=== PATIENT | female | born 1945 | race Caucasian/White ===

== ENCOUNTER 2017-09-23 01:41 | Emergency (ER) | payer MEDICARE, BC ==
[2017-09-23] MEDS ORDERED: Ondansetron 4 MG/2 ML SDV IV ONE (02:24)
--- NOTE | 2017-09-23 02:42 | EDM.PDOC ---
ED HPI GENERAL MEDICAL PROBLEM - General Chief Complaint: Abdominal Pain Stated Complaint: STOMACH PAINS [id number] Time Seen by Provider: 09/23/17 02:40 Source of Information: Reports: Patient History Limitations: Reports: No Limitations - History of Present Illness INITIAL COMMENTS - FREE TEXT/NARRATIVE: c/o suprapubic area pain since 7pm nausea, no vomiting/diarrhoea Lower Abdominal Pain Score (Numeric/FACES): 10 - Related Data Allergies Allergy/AdvReac Type Severity Reaction Status Date / Time erythromycin base Allergy Hives Verified 09/23/17 02:01 [From E.E.S.] Penicillins Allergy Hives Verified 09/23/17 02:01 Home Meds: Home Meds Estropipate [Estropipate] 0.75 mg PO DAILY 09/23/17 [History] FLUoxetine HCl [Fluoxetine HCl] 80 mg PO DAILY 09/23/17 [History] Omeprazole [Omeprazole] 20 mg PO DAILY 09/23/17 [History] amLODIPine Besylate [Amlodipine Besylate] 10 mg PO DAILY 09/23/17 [History] hydrOXYzine Pamoate [Hydroxyzine Pamoate] 25 mg PO DAILY 09/23/17 [History] metFORMIN [Glucophage XR] 500 mg PO DAILY 09/23/17 [History] Past Medical History Cardiovascular History: Reports: Hypertension Gastrointestinal History: Reports: GERD Genitourinary History: Reports: Urinary Incontinence [employer] History: Reports: Musculoskeletal History: Reports: Back Pain, Chronic Psychiatric History: Reports: Depression - Past Surgical History GI Surgical History: Reports: Appendectomy Musculoskeletal Surgical History: Reports: Knee Replacement Social & Family History - Family History Family Medical History: Noncontributory - Tobacco Use Smoking Status *Q: Never Smoker Second Hand Smoke Exposure: No - Caffeine Use Caffeine Use: Reports: Coffee, Tea - Recreational Drug Use Recreational Drug Use: No ED ROS GENERAL - Review of Systems Review Of Systems: ROS reveals no pertinent complaints other than HPI. ED EXAM, GI/ABD - Physical Exam Exam: See Below Exam Limited By: No Limitations General Appearance: Alert, WD/WN, Mild Distress Ears: Hearing Grossly Normal Throat/Mouth: Normal Voice, No Airway Compromise Head: Atraumatic Neck: Non-Tender, Full Range of Motion Respiratory/Chest: No Respiratory Distress, No Accessory Muscle Use Cardiovascular: Regular Rate, Rhythm GI/Abdominal Exam: Tender, Other (suprapubic area). No: Distended, Guarding, Rigid, Rebound Neurological: Alert, Oriented, Normal Cognition, Normal Gait, No Motor/Sensory Deficits Psychiatric: Flat Affect Skin Exam: Warm, Dry, Normal Color Lymphatic: No Adenopathy Course - Vital Signs Last Recorded V/S: Last Vital Signs Temp 37.1 C 09/23/17 04:04 Pulse 87 09/23/17 04:04 Resp 16 09/23/17 04:04 BP 158/90 H 09/23/17 04:04 Pulse Ox 97 09/23/17 04:04 - Orders/Labs/Meds Orders: Active Orders 24 hr Category Date Time Status CULTURE BLOOD [BC] Stat Lab 09/23/17 03:02 Received Labs: Laboratory Tests 09/23/17 09/23/17 09/23/17 Range/Units 02:18 02:18 02:37 WBC 18.1 H (5.0-10.0) 10^3/uL RBC 4.61 (4.2-5.4) 10^6/uL Hgb 13.8 (12.0-16.0) g/dL Hct 41.7 (37.0-47.0) % MCV 90.5 (80-100) fL MCH 29.9 (27.0-34.0) pg MCHC 33.1 (33.0-35.0) g/dL Plt Count 278 (150-450) 10^3/uL Neut % (Auto) 90.9 H (42.2-75.2) % Lymph % (Auto) 3.2 L (20.5-50.1) % [place] % (Auto) 5.5 (2-8) % Eos % (Auto) 0.2 L (1.0-3.0) % Baso % (Auto) 0.2 (0.0-1.0) % Sodium 137 (135-145) mmol/L Potassium 4.0 (3.6-5.0) mmol/L Chloride 102 (101-111) mmol/L Carbon Dioxide 21.0 (21.0-31.0) mmol/L Anion Gap 18.0 BUN 28 H (7-18) mg/dL Creatinine 0.9 (0.6-1.3) mg/dL Est Cr Clr Drug Dosing 52.34 mL/min Estimated GFR (MDRD) > 60 BUN/Creatinine Ratio 31.11 Glucose 243 H (74-105) mg/dL Lactic Acid (0.5-2.2) mmol/L Calcium 9.2 (8.4-10.2) mg/dl Total Bilirubin 0.4 (0.2-1.0) mg/dL AST 33 (10-42) IU/L ALT 27 (10-60) IU/L Alkaline Phosphatase 68 (42-121) IU/L Total Protein 7.2 (6.7-8.2) g/dl Albumin 3.8 (3.2-5.5) g/dl Globulin 3.4 Albumin/Globulin Ratio 1.12 Urine Color Yellow (YELLOW) Urine Appearance Clear (CLEAR) Urine pH 5.0 (5.0-9.0) Ur Specific [place] >= 1.030 (1.005-1.030) Urine Protein Negative (NEGATIVE) Urine Glucose (UA) 250 H (NEGATIVE) Urine Ketones Trace H (NEGATIVE) Urine Occult Blood Trace-intact H (NEGATIVE) Urine Nitrite Negative (NEGATIVE) Urine Bilirubin Negative (NEGATIVE) Urine Urobilinogen 0.2 (0.2-1.0) mg/dL Ur Leukocyte Esterase Negative (NEGATIVE) Urine RBC 0-5 /HPF Urine WBC 0-5 (0-5/HPF) /HPF Ur Epithelial Cells Few /HPF Urine Bacteria Few (0-FEW/HPF) /HPF Urine Mucus Few H /LPF / Range/Units 03:02 WBC (5.0-10.0) 10^3/uL RBC (4.2-5.4) 10^6/uL Hgb (12.0-16.0) g/dL Hct (37.0-47.0) % MCV (80-100) fL MCH (27.0-34.0) pg MCHC (33.0-35.0) g/dL Plt Count (150-450) 10^3/uL Neut % (Auto) (42.2-75.2) % Lymph % (Auto) (20.5-50.1) % [place] % (Auto) (2-8) % Eos % (Auto) (1.0-3.0) % Baso % (Auto) (0.0-1.0) % Sodium (135-145) mmol/L Potassium (3.6-5.0) mmol/L Chloride (101-111) mmol/L Carbon Dioxide (21.0-31.0) mmol/L Anion Gap BUN (7-18) mg/dL Creatinine (0.6-1.3) mg/dL Est Cr Clr Drug Dosing mL/min Estimated GFR (MDRD) BUN/Creatinine Ratio Glucose (74-105) mg/dL Lactic Acid 3.4 H (0.5-2.2) mmol/L Calcium (8.4-10.2) mg/dl Total Bilirubin (0.2-1.0) mg/dL AST (10-42) IU/L ALT (10-60) IU/L Alkaline Phosphatase (42-121) IU/L Total Protein (6.7-8.2) g/dl Albumin (3.2-5.5) g/dl Globulin Albumin/Globulin Ratio Urine Color (YELLOW) Urine Appearance (CLEAR) Urine pH (5.0-9.0) Ur Specific [place] (1.005-1.030) Urine Protein (NEGATIVE) Urine Glucose (UA) (NEGATIVE) Urine Ketones (NEGATIVE) Urine Occult Blood (NEGATIVE) Urine Nitrite (NEGATIVE) Urine Bilirubin (NEGATIVE) Urine Urobilinogen (0.2-1.0) mg/dL Ur Leukocyte Esterase (NEGATIVE) Urine RBC /HPF Urine WBC (0-5/HPF) /HPF Ur Epithelial Cells /HPF Urine Bacteria (0-FEW/HPF) /HPF Urine Mucus /LPF Meds: Medications Discontinued Medications Generic Name Dose Route Start Last Admin Trade Name Freq PRN Reason Stop Dose Admin Loperamide HCl 2 mg 09/23/17 04:15 Imodium PO 09/23/17 04:16 ONETIME ONE Morphine Sulfate 2 mg 09/23/17 02:55 09/23/17 02:59 Morphine IVPUSH 09/23/17 02:56 2 mg ONETIME ONE Administration Ondansetron HCl 4 mg 09/23/17 02:24 09/23/17 02:44 Zofran IV 09/23/17 02:25 4 mg ONETIME ONE Administration - Re-Assessments/Exams Free Text/Narrative Re-Assessment/Exam: 09/23/17 04:17 results discussed with pt who is feeling much better after having 2 large BM Departure - Departure Time of Disposition: 04:17 Disposition: Home, Self-Care 01 Condition: Good Clinical Impression: Gastroenteritis Abdominal pain Qualifiers: Abdominal location: lower abdomen, unspecified Qualified Code(s): R10.30 - Lower abdominal pain, unspecified Diarrhea Qualifiers: Diarrhea type: unspecified type Qualified Code(s): R19.7 - Diarrhea, unspecified - Discharge Information Instructions: Viral Gastroenteritis, Adult, Tmnr-of-Bcfw Forms: ED Department Discharge Additional Instructions: 1) avoid solid foods next 48 hours 2) have broth, jello 3) recheck as needed rx given; bentyl 10mg bid prn x 6 imodium qid prn - My Orders Last 24 Hours: My Active Orders 09/23/17 03:02 CULTURE BLOOD [BC] Stat - Assessment/Plan Last 24 Hours: My Active Orders 09/23/17 03:02 CULTURE BLOOD [BC] Stat
[2017-09-23] MEDS ORDERED: Morphine 2 MG/ML Syringe IVPUSH ONE (02:55)
[2017-09-23 02:57] LABS: CHLORIDE,CL 102 mmol/L (101-111); SODIUM,NA 137 mmol/L (135-145)
[2017-09-23] MEDS ORDERED: Loperamide 2 MG Cap PO ONE (04:15)
== END 2017-09-23 04:28 | disposition home or self-care (01) ==
LOC: DL.ED 01:41
DX: K52.9 Noninfective gastroenteritis and colitis, unspecified (principal); I10 Essential (primary) hypertension; Z88.1 Allergy status to other antibiotic agents; Z88.0 Allergy status to penicillin; Z79.899 Other long term (current) drug therapy; Z79.84 Long term (current) use of oral hypoglycemic drugs
CPT/HCPCS: 36415; 71045; 74176; 80053; 81001; 83605; 85025; 87040; 96374; 96375; 99284; A9270; J2270; J2405

== ENCOUNTER → 2018-12-16 | Outpatient (CLI) | payer MEDICARE, BC ==
[2018-12-16 11:13] LABS: ANION GAP 16.3; CHLORIDE,CL 100 mmol/L (101-111); SODIUM,NA 136 mmol/L (135-145)
== END ==
LOC: DL.CLIN 08:58
PROVIDERS: ATTEND Nurse Practitioner
DX: E11.9 Type 2 diabetes mellitus without complications (principal); E78.00 Pure hypercholesterolemia, unspecified; I10 Essential (primary) hypertension; R53.83 Other fatigue
CPT/HCPCS: 36415; 80053; 80061; 81003-QW; 82043; 82570; 83036; 84443; 85025

== ENCOUNTER → 2019-01-18 | Outpatient (CLI) | payer MEDICARE, BC | LOC: DL.CLIN 11:00 | DX: B37.2 Candidiasis of skin and nail (principal) | CPT/HCPCS: 99212 ==

== ENCOUNTER 2019-04-28 05:39 | Inpatient (IN) | payer MEDICARE, BC ==
[2019-04-28] MEDS ORDERED: Diltiazem 25 MG/5 ML SDV IVPUSH ONE (05:48)
[2019-04-28] MEDS ORDERED: Diltiazem 25 MG/5 ML SDV ONE (05:48)
[2019-04-28] MEDS: Sodium Chloride 0.9% 10 ML Syringe FLUSH PRN (05:55)
[2019-04-28 06:16] LABS: ANION GAP 22.7; CHLORIDE,CL 101 mmol/L (101-111); SODIUM,NA 136 mmol/L (135-145)
[2019-04-28] MEDS ORDERED: Furosemide 40 MG/4 ML VIAL IVPUSH ONE (06:34)
--- NOTE | 2019-04-28 07:18 | EDM.PDOC ---
ED HPI GENERAL MEDICAL PROBLEM - General Chief Complaint: Cardiovascular Problem Stated Complaint: TROUBLE BREATHING Time Seen by Provider: 04/28/19 05:50 Source of Information: Reports: Patient, Family, RN, RN Notes Reviewed History Limitations: Reports: Respiratory Distress - History of Present Illness INITIAL COMMENTS - FREE TEXT/NARRATIVE: Pt to ER with c/o SOB and cough. Patient states she woke up during the night and was unable to breathe. Patient states she has been not feeling well since March 19. She states she has had a cough and SOB since then. States she has atrial fibrillation. Patient denies fever, chills, N/V/D. Denies chest pains. Patient pale, diaphoretic, SOB upon arrival to the ER. O2 Sats mid to high 80's upon arrival to the ER. Onset: Today, Sudden Back Pain Score (Numeric/FACES): 5 - Related Data Allergies Allergy/AdvReac Type Severity Reaction Status Date / Time erythromycin base Allergy Hives Verified 04/28/19 06:10 [From E.E.S.] Penicillins Allergy Hives Verified 04/28/19 06:10 Home Meds: Home Meds Estropipate 0.75 mg PO DAILY 09/23/17 [History] FLUoxetine HCl [Fluoxetine HCl] 80 mg PO DAILY 09/23/17 [History] Omeprazole 20 mg PO DAILY 09/23/17 [History] amLODIPine Besylate [Amlodipine Besylate] 10 mg PO DAILY 09/23/17 [History] hydrOXYzine pamoate [Hydroxyzine Pamoate] 25 mg PO DAILY 09/23/17 [History] metFORMIN [Glucophage XR] 500 mg PO DAILY 09/23/17 [History] Cholecalciferol (Vitamin D3) [Vitamin D] 5,000 unit PO DAILY 04/28/19 [History] Garlic 1,000 mg PO DAILY 04/28/19 [History] Past Medical History HEENT History: Reports: Impaired Vision, Other (See Below) Other HEENT History: wears glasses Cardiovascular History: Reports: Hypertension Respiratory History: Reports: None Gastrointestinal History: Reports: GERD Genitourinary History: Reports: Urinary Incontinence 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: Musculoskeletal History: Reports: Back Pain, Chronic Neurological History: Reports: None Psychiatric History: Reports: Depression Endocrine/Metabolic History: Reports: None Hematologic History: Reports: None Immunologic History: Reports: None Oncologic (Cancer) History: Reports: None - Past Surgical History GI Surgical History: Reports: Appendectomy Musculoskeletal Surgical History: Reports: Knee Replacement Social & Family History - Family History Family Medical History: Noncontributory - Tobacco Use Smoking Status *Q: Never Smoker - Caffeine Use Caffeine Use: Reports: Coffee, Tea - Recreational Drug Use Recreational Drug Use: No ED ROS GENERAL - Review of Systems Review Of Systems: ROS reveals no pertinent complaints other than HPI. ED EXAM, GENERAL - Physical Exam Exam: See Below Exam Limited By: Respiratory Distress General Appearance: Alert, WD/WN, Moderate Distress Eye Exam: Bilateral Eye: EOMI, Normal Inspection Ears: Normal External Exam, Hearing Grossly Normal Nose: Normal Inspection Throat/Mouth: Normal Inspection, Normal Voice, No Airway Compromise Head: Atraumatic, Normocephalic Neck: Normal Inspection Respiratory/Chest: Respiratory Distress, Decreased Breath Sounds, Crackles Cardiovascular: No Edema, Tachycardia, Irregularly Irregular Peripheral Pulses: 1+: Radial (L), Radial (R) GI/Abdominal: Normal Bowel Sounds, Soft, Non-Tender (Female) Exam: Deferred Rectal (Female) Exam: Deferred Back Exam: Normal Inspection, Full Range of Motion, NT Extremities: Normal Inspection, Normal Capillary Refill Neurological: Alert, Oriented, CN II-XII Intact, Normal Cognition, Normal Gait, Normal Reflexes, No Motor/Sensory Deficits Psychiatric: Normal Affect, Normal Mood Skin Exam: Cool, Diaphoretic Lymphatic: No Adenopathy Course - Vital Signs Last Recorded V/S: Last Vital Signs Temp 98.4 F 04/28/19 06:15 Pulse 92 04/28/19 06:15 Resp 20 04/28/19 06:15 BP 113/67 04/28/19 06:15 Pulse Ox 92 L 04/28/19 06:15 - Orders/Labs/Meds Orders: Active Orders 24 hr Category Date Time Status EKG Documentation Completion [RC] STAT Care 04/28/19 05:47 Active Peripheral IV Care [RC] . DIRECTED Care 04/28/19 05:48 Active Sodium Chloride 0.9% [Saline Flush] Med 04/28/19 05:48 Active 10 ml FLUSH ASDIRECTED PRN Peripheral IV Insertion Adult [OM.PC] Stat Oth 04/28/19 05:47 Ordered Medication Orders Sodium Chloride (Saline Flush) 10 ml FLUSH ASDIRECTED PRN PRN Reason: Keep Vein Open Last Admin: 04/28/19 05:55 Dose: 10 ml Labs: Laboratory Tests 04/28/19 04/28/19 04/28/19 Range/Units 05:45 05:45 05:45 WBC 15.8 H (5.0-10.0) 10^3/uL RBC 4.64 (4.2-5.4) 10^6/uL Hgb 13.5 (12.0-16.0) g/dL Hct 43.0 (37.0-47.0) % MCV 92.7 (80-100) fL MCH 29.1 (27.0-34.0) pg MCHC 31.4 L (33.0-35.0) g/dL Plt Count 370 (150-450) 10^3/uL Neut % (Auto) 64.6 (42.2-75.2) % Lymph % (Auto) 21.5 (20.5-50.1) % [place] % (Auto) 11.6 H (2-8) % Eos % (Auto) 2.0 (1.0-3.0) % Baso % (Auto) 0.3 (0.0-1.0) % Add Manual Diff Yes Neutrophils % (Manual) 54 (42-75) % Lymphocytes % (Manual) 30 (20-50) % Monocytes % (Manual) 11 H (2-8) % Eosinophils % (Manual) 2 (1-3) % Basophils % (Manual) 3 Atypical Lymphocytes Moderate Platelet Estimate Adequate PT 9.5 (9.0-12.0) SEC INR 0.9 (0.9-1.2) Sodium 136 (135-145) mmol/L Potassium 3.7 (3.6-5.0) mmol/L Chloride 101 (101-111) mmol/L Carbon Dioxide 16.0 L (21.0-31.0) mmol/L Anion Gap 22.7 BUN 11 (7-18) mg/dL Creatinine 0.9 (0.6-1.3) mg/dL Est Cr Clr Drug Dosing TNP Estimated GFR (MDRD) > 60 BUN/Creatinine Ratio 12.22 Glucose 285 H (74-105) mg/dL Calcium 8.9 (8.4-10.2) mg/dl Total Bilirubin 0.6 (0.2-1.0) mg/dL AST 40 (10-42) IU/L ALT 27 (10-60) IU/L Alkaline Phosphatase 68 (42-121) IU/L Troponin I < 0.02 (0.00-0.02) ng/ml B-Natriuretic Peptide 586 H (0-100) pg/ml Total Protein 7.3 (6.7-8.2) g/dl Albumin 3.4 (3.2-5.5) g/dl Globulin 3.9 Albumin/Globulin Ratio 0.87 Meds: Medications Generic Name Dose Route Start Last Admin Trade Name Freq PRN Reason Stop Dose Admin Sodium Chloride 10 ml 04/28/19 05:48 04/28/19 05:55 Saline Flush FLUSH 10 ml ASDIRECTED PRN Administration Keep Vein Open Discontinued Medications Generic Name Dose Route Start Last Admin Trade Name Freq PRN Reason Stop Dose Admin Diltiazem HCl 25 mg 04/28/19 05:48 04/28/19 05:54 Diltiazem IVPUSH 04/28/19 05:49 20 mg ONETIME ONE Administration Diltiazem HCl Confirm 04/28/19 05:48 04/28/19 05:55 Diltiazem Administered 04/28/19 05:49 Not Given Dose 25 mg .ROUTE .STK-MED ONE Furosemide 80 mg 04/28/19 06:34 04/28/19 07:07 Lasix IVPUSH 04/28/19 06:35 80 mg NOW ONE Administration - Radiology Interpretation Free Text/Narrative:: Chest xray: FINDINGS: Lungs: There is moderate perihilar interstitial prominence consistent with volume overload or congestive heart failure. There is subjacent atelectasis at the lung bases. Pleural space: There are bilateral small pleural effusions blunting the costophrenic angles. Heart/Mediastinum: Borderline cardiomegaly. Bones/joints: Unremarkable. IMPRESSION: There is moderate perihilar interstitial prominence consistent with volume overload or congestive heart failure. Thank you for allowing us to participate in the care of your patient. Dictated and Authenticated by: Khai Meyers MD 04/28/2019 7:02 AM Central Time ([place] & [place]) See rad report - Re-Assessments/Exams Free Text/Narrative Re-Assessment/Exam: 04/28/19 07:28 Discussed patient case with Dr. Garcia who agreed to accept the patient for inpatient admission. Departure - Departure Time of Disposition: 07:26 Disposition: Admitted As Inpatient 68 Condition: Fair Clinical Impression: CHF (congestive heart failure) Qualifiers: Heart failure type: unspecified Heart failure chronicity: acute Qualified Code( s): I50.9 - Heart failure, unspecified Atrial fibrillation Qualifiers: Atrial fibrillation type: unspecified Qualified Code(s): I48.91 - Unspecified atrial fibrillation Diabetes Qualifiers: Diabetes mellitus type: type 2 Diabetes mellitus buttermaker helper insulin use: without buttermaker helper use Diabetes mellitus complication status: without complication Qualified Code(s): E11.9 - Type 2 diabetes mellitus without complications Forms: ED Department Discharge - My Orders Last 24 Hours: My Active Orders 04/28/19 05:47 EKG Documentation Completion [RC] STAT Peripheral IV Insertion Adult [OM.PC] Stat 04/28/19 05:48 Peripheral IV Care [RC] . DIRECTED Sodium Chloride 0.9% [Saline Flush] 10 ml FLUSH ASDIRECTED PRN - Assessment/Plan Last 24 Hours: My Active Orders 04/28/19 05:47 EKG Documentation Completion [RC] STAT Peripheral IV Insertion Adult [OM.PC] Stat 04/28/19 05:48 Peripheral IV Care [RC] . DIRECTED Sodium Chloride 0.9% [Saline Flush] 10 ml FLUSH ASDIRECTED PRN
[2019-04-28] MEDS ORDERED: Polyethylene Glycol 3350 Powder 17 GM Packet PO PRN (09:04)
[2019-04-28] MEDS ORDERED: Magnesium Hydroxide 400 MG/5 ML Susp 30 ML Cup PO PRN (09:04)
[2019-04-28] MEDS ORDERED: Ondansetron 4 MG Tab.DIS PO PRN (09:04)
[2019-04-28] MEDS ORDERED: Bisacodyl 5 MG Tab PO PRN (09:04)
[2019-04-28] MEDS ORDERED: Albuterol 0.083% 2.5 MG/3 ML Neb Soln NEB PRN (09:04)
[2019-04-28] MEDS ORDERED: Docusate Sodium 100 MG Cap PO PRN (09:04)
[2019-04-28] MEDS ORDERED: Betamethasone Dipropionate/Clotrimazole 0.05-1% Crm 15 GM Tube TOP PRN (09:24)
[2019-04-28] MEDS ORDERED: Atenolol 50 MG Tab PO SCH (09:30)
--- NOTE | 2019-04-28 10:39 | PCM.HP ---
H&P History of Present Illness - General Date of Service: 04/28/19 Admit Problem/Dx: Admission Diagnosis/Problem Admission Diagnosis/Problem Congestive heart failure Source of Information: Patient, Old Records - History of Present Illness Initial Comments - Free Text/Narative: Ms. Hughes is a 73 y.o female with medical history significant for HTN, hypercholesterolemia, a-fib, DM II on metformin, anxiety disorder, and GERD who presented to the ED with complaints of shortness of breath and was found to be in acute CHF exacerbation and a-fib with RVR. Patient reports that she has been dealing with shortness of breath and cough for the past one month, starting on March 19. 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 She reports that she had difficulty breathing overnight and could not sleep well. She reports non- productive cough and wheezing. She reports bilateral lower extremity edema. She denies PND or orthopnea. She denies fevers, chills, n/v/d/c, chest pain, dysuria , hematuria, recent travel. She denies tobacco, alcohol, or illicit drug use. Back Pain Score (Numeric/FACES): 5 - Related Data Allergies/Adverse Reactions: Allergies Allergy/AdvReac Type Severity Reaction Status Date / Time erythromycin base Allergy Hives Verified 04/28/19 06:10 [From [facility] Penicillins Allergy Hives Verified 04/28/19 06:10 Home Medications: Home Meds Apixaban [Eliquis] 5 mg PO DAILY 04/28/19 [History] Atenolol/Chlorthalidone [Tenoretic 50 Tablet] 1 each PO DAILY 04/28/19 [History] Cholecalciferol (Vitamin D3) [Vitamin D] 5,000 unit PO DAILY 04/28/19 [History] Clotrimazole/Betamethasone Dip [Lotrisone Cream] 1 applic TOP 5XDAY PRN [History] Estradiol 0.5 mg PO DAILY 04/28/19 [History] FLUoxetine HCl [Fluoxetine HCl] 80 mg PO DAILY 04/28/19 [History] Lisinopril 40 mg PO DAILY 04/28/19 [History] Metoprolol Succinate 100 mg PO DAILY 04/28/19 [History] Mirabegron [Myrbetriq] 50 mg PO DAILY 04/28/19 [History] Nystatin 1 applic TOP BID 04/28/19 [History] Omeprazole 40 mg PO DAILY 04/28/19 [History] Promethazine HCl/Codeine [Prometh-Codein 6.25-10 mg/5 ml] 5 ml PO Q4H PRN [History] atorvaSTATin Calcium [Atorvastatin Calcium] 10 mg PO DAILY 04/28/19 [History] metFORMIN HCl [Metformin HCl] 1,000 mg pe PO BID 04/28/19 [History] Past Medical History HEENT History: Reports: Impaired Vision, Other (See Below) Other HEENT History: wears glasses Cardiovascular History: Reports: Afib, Hypertension, SOB on Exertion Respiratory History: Reports: None Gastrointestinal History: Reports: GERD Genitourinary History: Reports: Urinary Incontinence [employer]ER History: Reports: Musculoskeletal History: Reports: Back Pain, Chronic Neurological History: Reports: None Psychiatric History: Reports: Depression Endocrine/Metabolic History: Reports: None Hematologic History: Reports: None Immunologic History: Reports: None Oncologic (Cancer) History: Reports: None Dermatologic History: Reports: None - Infectious Disease History Infectious Disease History: Reports: Chicken Pox - Past Surgical History Head Surgeries/Procedures: Reports: None Other HEENT Surgeries/Procedures: Cataract surgery was scheduled for 21Aug GI Surgical History: Reports: Appendectomy Musculoskeletal Surgical History: Reports: Knee Replacement Social & Family History - Family History Family Medical History: Noncontributory - Tobacco Use Smoking Status *Q: Never Smoker Second Hand Smoke Exposure: No - Caffeine Use Caffeine Use: Reports: Coffee - Recreational Drug Use Recreational Drug Use: No H&P Review of Systems - Review of Systems: Review Of Systems: ROS reveals no pertinent complaints other than HPI. Exam - Exam Exam: See Below - Vital Signs Vital Signs: Last Vital Signs Temp 98.4 F 04/28/19 09:04 Pulse 112 H 04/28/19 09:04 Resp 24 H 04/28/19 09:04 BP 142/78 H 04/28/19 09:04 Pulse Ox 93 L 04/28/19 09:04 Weight: 272 lb - Exam Quality Assessment: Supplemental Oxygen General: Alert, Oriented, Cooperative, Mild Distress HEENT: Conjunctiva Clear, EOMI, Hearing Intact, PERRLA Neck: Supple, Trachea Midline Lungs: Normal Respiratory Effort, Crackles, Wheezing Cardiovascular: Regular Rate, Regular Rhythm GI/Abdominal Exam: Normal Bowel Sounds, Soft, Non-Tender, Other (Abdominal adiposity. ) Extremities: Normal Inspection, Non-Tender, No Pedal Edema Skin: Warm, Dry, Intact Neuro Extensive - Mental Status: Alert, Oriented x3, Normal Mood/Affect Psychiatric: Alert, Normal Affect, Normal Mood - Patient Data Lab Results Last 24 hrs: Laboratory Results - last 24 hr 04/28/19 04/28/19 04/28/19 Range/Units 05:45 05:45 05:45 WBC 15.8 H (5.0-10.0) 10^3/uL RBC 4.64 (4.2-5.4) 10^6/uL Hgb 13.5 (12.0-16.0) g/dL Hct 43.0 (37.0-47.0) % MCV 92.7 (80-100) fL MCH 29.1 (27.0-34.0) pg MCHC 31.4 L (33.0-35.0) g/dL Plt Count 370 (150-450) 10^3/uL Neut % (Auto) 64.6 (42.2-75.2) % Lymph % (Auto) 21.5 (20.5-50.1) % [place] % (Auto) 11.6 H (2-8) % Eos % (Auto) 2.0 (1.0-3.0) % Baso % (Auto) 0.3 (0.0-1.0) % Add Manual Diff Yes Neutrophils % (Manual) 54 (42-75) % Lymphocytes % (Manual) 30 (20-50) % Monocytes % (Manual) 11 H (2-8) % Eosinophils % (Manual) 2 (1-3) % Basophils % (Manual) 3 Atypical Lymphocytes Moderate Platelet Estimate Adequate PT 9.5 (9.0-12.0) SEC INR 0.9 (0.9-1.2) Sodium 136 (135-145) mmol/L Potassium 3.7 (3.6-5.0) mmol/L Chloride 101 (101-111) mmol/L Carbon Dioxide 16.0 L (21.0-31.0) mmol/L Anion Gap 22.7 BUN 11 (7-18) mg/dL Creatinine 0.9 (0.6-1.3) mg/dL Est Cr Clr Drug Dosing TNP Estimated GFR (MDRD) > 60 BUN/Creatinine Ratio 12.22 Glucose 285 H (74-105) mg/dL Calcium 8.9 (8.4-10.2) mg/dl Total Bilirubin 0.6 (0.2-1.0) mg/dL AST 40 (10-42) IU/L ALT 27 (10-60) IU/L Alkaline Phosphatase 68 (42-121) IU/L Troponin I < 0.02 (0.00-0.02) ng/ml B-Natriuretic Peptide 586 H (0-100) pg/ml Total Protein 7.3 (6.7-8.2) g/dl Albumin 3.4 (3.2-5.5) g/dl Globulin 3.9 Albumin/Globulin Ratio 0.87 Result Diagrams: 04/28/19 05:45 04/28/19 09:15 *Q Meaningful Use (ADM) - VTE *Q VTE Anticoagulation Contraindications: Alternative TX Request PT - Problem List (1) Atrial fibrillation with RVR SNOMED Code(s): 890917512089118 ICD Code: I48.91 - UNSPECIFIED ATRIAL FIBRILLATION Status: Acute Current Visit: Yes (2) Acute heart failure with normal ejection fraction SNOMED Code(s): 396602574, 209788570 ICD Code: I50.31 - ACUTE DIASTOLIC (CONGESTIVE) HEART FAILURE Status: Acute Current Visit: Yes (3) Anxiety SNOMED Code(s): 39477285 ICD Code: F41.9 - ANXIETY DISORDER, UNSPECIFIED Status: Acute Current Visit: Yes (4) Diabetes SNOMED Code(s): 68940164 ICD Code: E11.9 - TYPE 2 DIABETES MELLITUS WITHOUT COMPLICATIONS Status: Acute Current Visit: No Qualifiers: Diabetes mellitus type: type 2 Diabetes mellitus senior care insulin use: without senior care use Diabetes mellitus complication status: without complication Qualified Code(s): E11.9 - Type 2 diabetes mellitus without complications Problem List Initiated/Reviewed/Updated: Yes Orders Last 24hrs: Active Orders 24 hr Category Date Time Status Admission Diagnosis [ADT] Routine ADT 04/28/19 07:32 Ordered Patient Status [ADT] Routine ADT 04/28/19 07:32 Active Blood Glucose Check, Bedside [RC] QIDACANDBED Care 08/22/19 09:04 Ordered Cardiac Monitoring [RC] CONTINUOUS Care 04/28/19 09:05 Ordered Height and Weight [RC] DAILY Care 04/28/19 09:04 Ordered Intake and Output [RC] QSHIFT Care 04/28/19 09:05 Ordered May Shower [RC] ASDIRECTED Care 04/28/19 09:04 Ordered Notify Provider Vital Signs [RC] ASDIRECTED Care 04/28/19 09:05 Ordered Oxygen Therapy [RC] PRN Care 04/28/19 09:04 Ordered RT Aerosol Therapy [RC] ASDIRECTED Care 04/28/19 09:12 Ordered Up ad Michelle [RC] ASDIRECTED Care 04/28/19 09:04 Ordered VTE/DVT Education [RC] PER UNIT ROUTINE Care 04/28/19 09:04 Ordered Vital Signs [RC] Q4H Care 04/28/19 09:04 Ordered 2 Gram Sodium Diet [DIET] Diet 04/28/19 Breakfast Ordered Consistent Carbohydrate Diet [DIET] Diet 04/28/19 Breakfast Ordered Echo Comp wo Cont [US] Urgent Exams 04/28/19 09:23 Ordered BASIC METABOLIC PANEL,BMP [CHEM] DAILY Lab 04/28/19 09:15 Ordered CBC W/O DIFF,HEMOGRAM [HEME] AM Lab 04/29/19 05:11 Ordered MAGNESIUM [CHEM] DAILY Lab 04/28/19 09:15 Ordered PHOSPHORUS [CHEM] DAILY Lab 04/28/19 09:15 Ordered Acetaminophen [Tylenol] Med 04/28/19 09:04 Ordered 650 mg PO Q4H PRN Albuterol [Proventil Neb Soln] Med 04/28/19 09:04 Ordered 2.5 mg NEB Q2H PRN Apixaban [Eliquis] Med 04/28/19 09:30 Ordered 5 mg PO DAILY Atenolol/Chlorthalidone [Tenoretic 50 Tablet] Med 04/28/19 09:30 Ordered 1 each PO DAILY Betamethasone/Clotrimazole [Lotrisone] Med 04/28/19 09:24 Ordered 1 applic TOP 5XDAY PRN Bisacodyl [Dulcolax] Med 04/28/19 09:04 Ordered 5 mg PO DAILY PRN Cholecalciferol (Vitamin D3) Med 04/28/19 09:30 Ordered 5,000 unit PO DAILY Docusate Sodium [Colace] Med 04/28/19 09:04 Ordered 100 mg PO BID PRN Docusate Sodium/Sennosides [Senna Plus] Med 04/28/19 09:04 Ordered 1 tab PO BEDTIME PRN Estradiol [Estradiol] Med 04/29/19 09:00 Ordered 0.5 mg PO DAILY FLUoxetine HCl [Fluoxetine HCl] Med 04/29/19 09:00 Ordered 80 mg PO DAILY Furosemide [Lasix] Med 04/28/19 16:00 Ordered 60 mg IVPUSH BIDAC Lisinopril [Lisinopril] Med 04/28/19 09:30 Ordered 40 mg PO DAILY Magnesium Hydroxide [Milk of Magnesia] Med 04/28/19 09:04 Ordered 30 ml PO Q12H PRN Metoprolol Succinate [Metoprolol Succinate] Med 04/28/19 09:30 Ordered 100 mg PO DAILY Mirabegron [Myrbetriq] Med 04/29/19 09:00 Ordered 50 mg PO DAILY Nystatin [Nystop] Med 04/28/19 21:00 Ordered 1 applic TOP BID Omeprazole [Omeprazole] Med 04/28/19 09:30 Ordered 40 mg PO DAILY Ondansetron [Zofran ODT] Med 04/28/19 09:04 Ordered 4 mg PO Q6H PRN Polyethylene Glycol 3350 [MiraLAX] Med 04/28/19 09:04 Ordered 17 gm PO DAILY PRN Promethazine HCl/Codeine [Prometh-Codein 6.25-10 mg/5 Med 04/28/19 09:24 Ordered ml] 5 ml PO Q4H PRN Sodium Chloride 0.9% [Saline Flush] Med 04/28/19 05:48 Active 10 ml FLUSH ASDIRECTED PRN atorvaSTATin [Lipitor] Med 04/29/19 09:00 Ordered 40 mg PO DAILY Anticoagulation Contraindications VTE [AST] Per Unit Oth 04/28/19 09:04 Ordered Routine Peripheral IV Insertion Adult [OM.PC] Stat Oth 04/28/19 05:47 Ordered Resuscitation Status Routine Resus Stat 04/28/19 09:04 Ordered Medication Orders Acetaminophen (Tylenol) 650 mg PO Q4H PRN PRN Reason: Pain (mild 1-3) Albuterol (Proventil Neb Soln) 2.5 mg NEB Q2H PRN PRN Reason: shortness of breath/wheezing Atorvastatin Calcium (Lipitor) 40 mg PO DAILY [facility] Betamethasone/Clotrimazole (Lotrisone) 0 gm TOP 5XDAY PRN PRN Reason: Itching Bisacodyl (Dulcolax) 5 mg PO DAILY PRN PRN Reason: Constipation Cholecalciferol (Vitamin D3) 125 mcg PO DAILY [facility] Docusate Sodium (Colace) 100 mg PO BID PRN PRN Reason: Constipation Fluoxetine HCl (Prozac) 80 mg PO DAILY [facility] Furosemide (Lasix) 60 mg IVPUSH BIDAC [facility] Lisinopril (Prinivil) 40 mg PO DAILY [facility] Magnesium Hydroxide (Milk Of Magnesia) 30 ml PO Q12H PRN PRN Reason: Constipation Metoprolol Succinate (Toprol Xl) 100 mg PO DAILY [facility] Non-Formulary Medication (Apixaban [Eliquis]) 5 mg PO DAILY [facility] Non-Formulary Medication (Atenolol/Chlorthalidone [Tenoretic 50 Tablet]) 1 each PO DAILY [facility] Non-Formulary Medication (Estradiol [Estradiol]) 0.5 mg PO DAILY [facility] Non-Formulary Medication (Mirabegron [Myrbetriq]) 50 mg PO DAILY [facility] Nystatin (Nystop) 0 gm TOP BID [facility] Omeprazole (Omeprazole) 40 mg PO ACBRK [facility] Ondansetron HCl (Zofran Odt) 4 mg PO Q6H PRN PRN Reason: nausea, able to take PO Polyethylene Glycol (Miralax) 17 gm PO DAILY PRN PRN Reason: Constipation Promethazine HCl/Codeine (Phenergan With Codeine) 5 ml PO Q4H PRN PRN Reason: Cough Senna/Docusate Sodium (Senna Plus) 1 tab PO BEDTIME PRN PRN Reason: Constipation Sodium Chloride (Saline Flush) 10 ml FLUSH ASDIRECTED PRN PRN Reason: Keep Vein Open Last Admin: 04/28/19 05:55 Dose: 10 ml Assessment/Plan Comment:: #Acute respiratory failure with hypoxia Acute diastolic heart failure: -Presents with O2 sat of 88% on room air. -CXR shows bilateral pulmonary edema -Given 80 mg IV lasix - Start lasix IV 60 mg BID - Low Na diet - Daily standing weight - Echocardiogram - Tele monitoring. #A fib with RVR: HR in the 150s. - Improved with cardizem in the ED. - Now in RVR again. - Start cardizem drip - Telemetry - TSH - Monitor and replace electrolytes - Was started on Eliquis but patient reports she had not started. - Start eliquis. #Metabolic acidosis: resolved. - CO2 on presentation was 16. - Improved to 23 with diuresis - Monitor renal function. #Hypomagnesemia - Mag is 1.3 - Replace mag #DM II: - SSI with hypoglycemia protocol. DVT PPx: Eliquis GI: Diabetic diet, low Na.
[2019-04-28 10:49] LABS: ANION GAP 15.9; CHLORIDE,CL 102 mmol/L (101-111); SODIUM,NA 137 mmol/L (135-145)
[2019-04-28] MEDS: Cholecalciferol (Vitamin D3) 25 MCG Tab PO SCH (11:12)
[2019-04-28] MEDS: Metoprolol Succinate 50 MG Tab.ER PO SCH (11:13)
[2019-04-28] MEDS: Lisinopril 20 MG Tab PO SCH (11:14)
[2019-04-28] MEDS: Omeprazole 20 MG Cap.CR PO SCH (11:14)
[2019-04-28] MEDS ORDERED: Glucagon,Human Recombinant 1 MG Vial IM PRN (14:36)
[2019-04-28] MEDS ORDERED: 50% Dextrose in Water 50 ML Syringe IVPUSH PRN (14:36)
[2019-04-28] MEDS ORDERED: Diltiazem 125 MG in Sodium Chloride 0.9% 100 ML IV SCH (14:45)
[2019-04-28] MEDS: Insulin Lispro 100 Units/ML 3 ML Vial SUBCUT SCH ×2 (17:01→23:24)
[2019-04-28] MEDS: Furosemide 40 MG/4 ML VIAL IVPUSH SCH (17:25)
[2019-04-28] MEDS: APIXABAN 5 MG PO SCH (21:50)
[2019-04-28] MEDS: Nystatin Topical Powder 30 GM Bottle TOP SCH (21:53)
[2019-04-29] MEDS: Codeine/Promethazine 10-6.25 MG/5 ML Syrup 5 ML UD Cup PO PRN ×2 (02:38→08:29)
[2019-04-29] MEDS: Omeprazole 20 MG Cap.CR PO SCH (05:59)
[2019-04-29] MEDS: Furosemide 40 MG/4 ML VIAL IVPUSH SCH ×2 (05:59→17:42)
[2019-04-29] MEDS ORDERED: 50% Dextrose in Water 50 ML Syringe IVPUSH PRN (08:18)
[2019-04-29] MEDS ORDERED: Glucagon,Human Recombinant 1 MG Vial IM PRN (08:18)
[2019-04-29] MEDS: Metoprolol Succinate 50 MG Tab.ER PO SCH (08:27)
[2019-04-29] MEDS: Cholecalciferol (Vitamin D3) 25 MCG Tab PO SCH (08:27)
[2019-04-29] MEDS: atorvaSTATin 20 MG Tab PO SCH (08:28)
[2019-04-29] MEDS: Lisinopril 20 MG Tab PO SCH (08:29)
[2019-04-29] MEDS: Atenolol 50 MG Tab PO SCH (08:29)
[2019-04-29] MEDS: FLUOXETINE 20 MG PO SCH (08:31)
[2019-04-29] MEDS: Nystatin Topical Powder 30 GM Bottle TOP SCH ×2 (08:31→21:22)
[2019-04-29] MEDS: ESTRADIOL 1 MG PO SCH (08:32)
[2019-04-29] MEDS: MIRABEGRON 25 MG PO SCH (08:32)
[2019-04-29] MEDS: Chlorthalidone 25 MG Tab PO SCH (10:14)
[2019-04-29 10:21] LABS: ANION GAP 13.9; CHLORIDE,CL 101 mmol/L (101-111); SODIUM,NA 140 mmol/L (135-145)
[2019-04-29] MEDS ORDERED: [UNRECOGNIZED DRUG - REMARK] PO SCH (10:30)
[2019-04-29] MEDS: APIXABAN 5 MG PO SCH ×2 (10:48→21:48)
[2019-04-29] MEDS ORDERED: Magnesium Sulfate/Water 2 GM in Premix Bag 1 BAG IV ONE (12:00)
--- NOTE | 2019-04-29 12:07 | PCM.PN ---
- General Info Date of Service: 04/29/19 Admission Dx/Problem (Free Text): Admission Diagnosis/Problem Admission Diagnosis/Problem Congestive heart failure Subjective Update: Went into A fib RVR again after arriving on the floor. Started on cardizem drip and weaned to 5 mg overnight. Weaned off O2 overnight. Denies any acute symptoms. Denies f/c, n/v/d/c, dysuria, or hematuria. - Patient Data Vitals - Most Recent: Last Vital Signs Temp 97.7 F 04/29/19 04:00 Pulse 112 H 04/29/19 08:29 Resp 20 04/29/19 06:15 BP 152/87 H 04/29/19 08:29 Pulse Ox 94 L 04/29/19 06:15 Weight - Most Recent: 228 lb I&O - Last 24 Hours: Intake & Output 04/28/19 04/29/19 04/29/19 22:59 06:59 14:59 Intake Total 600 400 Output Total 900 700 800 Balance -300 -700 -400 Lab Results Last 24 Hours: Laboratory Results - last 24 hr 04/28/19 04/28/19 04/29/19 Range/Units 16:43 20:56 05:50 WBC 10.1 H (5.0-10.0) 10^3/uL RBC 4.00 L (4.2-5.4) 10^6/uL Hgb 11.7 L D (12.0-16.0) g/dL Hct 37.0 (37.0-47.0) % MCV 92.5 (80-100) fL MCH 29.3 (27.0-34.0) pg MCHC 31.6 L (33.0-35.0) g/dL Plt Count 301 (150-450) 10^3/uL Sodium (135-145) mmol/L Potassium (3.6-5.0) mmol/L Chloride (101-111) mmol/L Carbon Dioxide (21.0-31.0) mmol/L Anion Gap BUN (7-18) mg/dL Creatinine (0.6-1.3) mg/dL Est Cr Clr Drug Dosing mL/min Estimated GFR (MDRD) Glucose (74-105) mg/dL POC Glucose 119 H 204 H (83-110) mg/dl Calcium (8.4-10.2) mg/dl Phosphorus (2.5-4.6) mg/dL Magnesium (1.8-2.5) mg/dL 04/29/19 04/29/19 04/29/19 Range/Units 05:50 07:44 11:21 WBC (5.0-10.0) 10^3/uL RBC (4.2-5.4) 10^6/uL Hgb (12.0-16.0) g/dL Hct (37.0-47.0) % MCV (80-100) fL MCH (27.0-34.0) pg MCHC (33.0-35.0) g/dL Plt Count (150-450) 10^3/uL Sodium 140 (135-145) mmol/L Potassium 3.9 (3.6-5.0) mmol/L Chloride 101 (101-111) mmol/L Carbon Dioxide 29.0 (21.0-31.0) mmol/L Anion Gap 13.9 BUN 22 H (7-18) mg/dL Creatinine 0.7 (0.6-1.3) mg/dL Est Cr Clr Drug Dosing 66.33 mL/min Estimated GFR (MDRD) > 60 Glucose 139 H (74-105) mg/dL POC Glucose 161 H 144 H (83-110) mg/dl Calcium 9.1 (8.4-10.2) mg/dl Phosphorus 4.5 (2.5-4.6) mg/dL Magnesium 1.5 L (1.8-2.5) mg/dL Med Orders - Current: Current Medications Acetaminophen (Tylenol) 650 mg PO Q4H PRN PRN Reason: Pain (mild 1-3) Albuterol (Proventil Neb Soln) 2.5 mg NEB Q2H PRN PRN Reason: shortness of breath/wheezing Atenolol (Tenormin) 50 mg PO DAILY [facility] Last Admin: 04/29/19 08:29 Dose: 50 mg Atorvastatin Calcium (Lipitor) 40 mg PO DAILY [facility] Last Admin: 04/29/19 08:28 Dose: 40 mg Betamethasone/Clotrimazole (Lotrisone) 0 gm TOP 5XDAY PRN PRN Reason: Itching Bisacodyl (Dulcolax) 5 mg PO DAILY PRN PRN Reason: Constipation Last Admin: 04/28/19 11:12 Dose: 5 mg Chlorthalidone (Chlorthalidone) 25 mg PO DAILY [facility] Last Admin: 04/29/19 10:14 Dose: 25 mg Cholecalciferol (Vitamin D3) 125 mcg PO DAILY [facility] Last Admin: 04/29/19 08:27 Dose: 125 mcg Dextrose/Water (Dextrose 50% In Water) 25 ml IVPUSH ASDIRECTED PRN PRN Reason: Hypoglycemia Docusate Sodium (Colace) 100 mg PO BID PRN PRN Reason: Constipation Last Admin: 04/28/19 11:13 Dose: 100 mg Furosemide (Lasix) 60 mg IVPUSH BIDAC [facility] Last Admin: 04/29/19 05:59 Dose: 60 mg Glucagon (Glucagen) 1 mg IM ONETIME PRN PRN Reason: Hypoglycemia Glucagon (Glucagen) 1 mg IM ONETIME PRN PRN Reason: Hypoglycemia Diltiazem HCl 125 mg/ Sodium (Chloride) 125 mls @ 5 mls/hr IV TITRATE [facility]; Protocol Last Titration: 04/29/19 10:49 Dose: 0 mg/hr, 0 mls/hr Magnesium Sulfate 2 gm/ Premix 50 mls @ 25 mls/hr IV ONETIME ONE Stop: 04/29/19 13:59 Insulin Human Lispro (Humalog) 0 unit SUBCUT ACBED [facility]; Protocol Lisinopril (Prinivil) 40 mg PO DAILY [facility] Last Admin: 04/29/19 08:29 Dose: 40 mg Magnesium Hydroxide (Milk Of Magnesia) 30 ml PO Q12H PRN PRN Reason: Constipation Magnesium Oxide (Magnesium Oxide) 500 mg PO BIDM [facility] Stop: 04/29/19 18:01 Last Admin: 04/29/19 08:27 Dose: 500 mg Magnesium Oxide (Magnesium Oxide) 250 mg PO WITHBREAKFAST [facility] Metoprolol Succinate (Toprol Xl) 100 mg PO DAILY [facility] Last Admin: 04/29/19 08:27 Dose: 100 mg Apixaban [Eliquis] 5 (Mg Non- Form) 0 each PO BID [facility] Last Admin: 04/29/19 10:17 Dose: 1 each Nystatin (Nystop) 0 gm TOP BID [facility] Last Admin: 04/29/19 08:31 Dose: 1 applic Omeprazole (Omeprazole) 40 mg PO ACBRK [facility] Last Admin: 04/29/19 05:59 Dose: 40 mg Ondansetron HCl (Zofran Odt) 4 mg PO Q6H PRN PRN Reason: nausea, able to take PO Estradiol 1 Mg Pt ('s Own Med) 0 each PO DAILY [facility] Last Admin: 04/29/19 08:32 Dose: 1 each Fluoxetine 20 Mg Cap (Pt's Own Med) 0 each PO DAILY [facility] Last Admin: 04/29/19 08:31 Dose: 1 each Mirabegron [ Myrbetriq] 25 Mg Pt's Own Med 0 each PO DAILY [facility] Last Admin: 04/29/19 08:32 Dose: 1 each Polyethylene Glycol (Miralax) 17 gm PO DAILY PRN PRN Reason: Constipation Promethazine HCl/Codeine (Phenergan With Codeine) 5 ml PO Q4H PRN PRN Reason: Cough Last Admin: 04/29/19 08:29 Dose: 5 ml Senna/Docusate Sodium (Senna Plus) 1 tab PO BEDTIME PRN PRN Reason: Constipation Sodium Chloride (Saline Flush) 10 ml FLUSH ASDIRECTED PRN PRN Reason: Keep Vein Open Last Admin: 04/28/19 05:55 Dose: 10 ml Discontinued Medications Dextrose/Water (Dextrose 50% In Water) 25 ml IVPUSH ASDIRECTED PRN PRN Reason: Hypoglycemia Diltiazem HCl (Diltiazem) 25 mg IVPUSH ONETIME ONE Stop: 04/28/19 05:49 Last Admin: 04/28/19 05:54 Dose: 20 mg Diltiazem HCl (Diltiazem) Confirm Administered Dose 25 mg .ROUTE .STK-MED ONE Stop: 04/28/19 05:49 Last Admin: 04/28/19 05:55 Dose: Not Given Furosemide (Lasix) 80 mg IVPUSH NOW ONE Stop: 04/28/19 06:35 Last Admin: 04/28/19 07:07 Dose: 80 mg Insulin Human Lispro (Humalog) 0 unit SUBCUT ACBED [facility]; Protocol Last Admin: 04/28/19 23:24 Dose: Not Given Apixaban [Eliquis] 5 (Mg Pt's Own Med) 0 each PO BID [facility] Last Admin: 04/29/19 10:48 Dose: Not Given - Exam General: Alert, Oriented HEENT: Pupils Equal, Pupils Reactive, Mucous Membr. Moist/[place] Neck: Supple Lungs: Clear to Auscultation, Normal Respiratory Effort Cardiovascular: Regular Rate, Irregular Rhythm GI/Abdominal Exam: Normal Bowel Sounds, Soft, No Distention Extremities: Normal Inspection, Non-Tender, No Pedal Edema Skin: Warm, Dry, Intact Neurological: No New Focal Deficit Psy/Mental Status: Alert, Normal Affect, Normal Mood - Problem List & Annotations (1) Atrial fibrillation with RVR SNOMED Code(s): 823867355893010 Code(s): I48.91 - UNSPECIFIED ATRIAL FIBRILLATION Status: Acute Current Visit: Yes (2) Acute heart failure with normal ejection fraction SNOMED Code(s): 155960249, 847415975 Code(s): I50.31 - ACUTE DIASTOLIC (CONGESTIVE) HEART FAILURE Status: Acute Current Visit: Yes (3) Anxiety SNOMED Code(s): 87480744 Code(s): F41.9 - ANXIETY DISORDER, UNSPECIFIED Status: Acute Current Visit: Yes (4) Diabetes SNOMED Code(s): 78056015 Code(s): E11.9 - TYPE 2 DIABETES MELLITUS WITHOUT COMPLICATIONS Status: Acute Current Visit: No Qualifiers: Diabetes mellitus type: type 2 Diabetes mellitus bed bug exterminator insulin use: without bed bug exterminator use Diabetes mellitus complication status: without complication Qualified Code(s): E11.9 - Type 2 diabetes mellitus without complications - Problem List Review Problem List Initiated/Reviewed/Updated: Yes - My Orders Last 24 Hours: My Active Orders 04/28/19 14:20 Magnesium Oxide 500 mg PO BIDM 04/28/19 14:36 Diabetes Education [RC] Click to Edit Notify Provider [RC] PRN Glucagon,Human Recombinant [GlucaGen] 1 mg IM ONETIME PRN 04/28/19 14:45 Diltiazem 125 mg Sodium Chloride 0.9% [Normal Saline] 100 ml IV TITRATE 04/28/19 16:00 Furosemide [Lasix] 60 mg IVPUSH BIDAC 04/28/19 19:20 Communication Order [RC] ROUTINE 04/28/19 21:00 Nystatin [Nystop] 0 gm TOP BID 04/29/19 08:18 Dextrose 50% in Water 25 ml IVPUSH ASDIRECTED PRN Glucagon,Human Recombinant [GlucaGen] 1 mg IM ONETIME PRN 04/29/19 08:19 Diabetes Education [RC] Click to Edit Notify Provider [RC] PRN 04/29/19 09:00 Atenolol [Tenormin] 50 mg PO DAILY Chlorthalidone 25 mg PO DAILY Patient's Own Medication [Ptom] 0 each PO DAILY Patient's Own Medication [Ptom] 0 each PO DAILY Patient's Own Medication [Ptom] 0 each PO DAILY atorvaSTATin [Lipitor] 40 mg PO DAILY 04/29/19 10:30 Non-Formulary Medication [NF Drug] 0 each PO BID 04/29/19 10:34 Patient Status Discharge Transfer [TRANSFER] Routine 04/29/19 11:00 Insulin Lispro [HumaLOG] See Protocol SUBCUT ACBED 04/29/19 12:00 Magnesium Sulfate/Water [Magnesium Sulfate in Water Premix] 2 gm Premix Bag 1 bag IV ONETIME 04/30/19 05:11 BASIC METABOLIC PANEL,BMP [CHEM] AM MAGNESIUM [CHEM] AM PHOSPHORUS [CHEM] AM 04/30/19 08:00 Magnesium Oxide 250 mg PO WITHBREAKFAST - Plan Plan:: #Acute respiratory failure with hypoxia: Resolved. Acute diastolic heart failure: -Presented with O2 sat of 88% on room air. -CXR shows bilateral pulmonary edema -Given 80 mg IV lasix -Continue lasix IV 60 mg BID -Switch to oral lasix today - Low Na diet - Daily standing weight - Echocardiogram pending. - Tele monitoring. #A fib with RVR: HR in the 150s. - Improved with cardizem in the ED. - Went into RVR again. - Wean cardizem drip as tolerated. - Telemetry - TSH - Monitor and replace electrolytes - Continue Eliquis. #Metabolic acidosis: resolved. - CO2 on presentation was 16. - Improved to 23 with diuresis - Monitor renal function. #Hypomagnesemia - Mag is 1.3 => 1.5 - Replace mag, both IV and oral today #DM II: - SSI with hypoglycemia protocol. DVT PPx: Eliquis GI: Diabetic diet, low Na.
[2019-04-29] MEDS: Insulin Lispro 100 Units/ML 3 ML Vial SUBCUT SCH ×4 (12:32→23:28)
[2019-04-29] MEDS: Sodium Chloride 0.9% 10 ML Syringe FLUSH PRN (21:50)
[2019-04-30] MEDS: Omeprazole 20 MG Cap.CR PO SCH (06:08)
[2019-04-30 06:42] LABS: ANION GAP 14.7; CHLORIDE,CL 99 mmol/L (101-111); SODIUM,NA 138 mmol/L (135-145)
[2019-04-30] MEDS: Metoprolol Succinate 50 MG Tab.ER PO SCH ×2 (07:25→09:16)
[2019-04-30] MEDS: Insulin Lispro 100 Units/ML 3 ML Vial SUBCUT SCH ×4 (07:38→20:26)
[2019-04-30] MEDS: Atenolol 50 MG Tab PO SCH (09:15)
[2019-04-30] MEDS: atorvaSTATin 20 MG Tab PO SCH (09:16)
[2019-04-30] MEDS: Cholecalciferol (Vitamin D3) 25 MCG Tab PO SCH (09:16)
[2019-04-30] MEDS: Furosemide 40 MG Tab PO SCH (09:17)
[2019-04-30] MEDS: Lisinopril 20 MG Tab PO SCH (09:17)
[2019-04-30] MEDS: Chlorthalidone 25 MG Tab PO SCH (09:17)
[2019-04-30] MEDS: APIXABAN 5 MG PO SCH ×2 (09:18→20:25)
[2019-04-30] MEDS: FLUOXETINE 20 MG PO SCH (09:19)
[2019-04-30] MEDS: Nystatin Topical Powder 30 GM Bottle TOP SCH ×2 (09:20→20:25)
[2019-04-30] MEDS: ESTRADIOL 1 MG PO SCH (09:20)
[2019-04-30] MEDS: MIRABEGRON 25 MG PO SCH (09:20)
[2019-04-30] MEDS ORDERED: Metoprolol Succinate 50 MG Tab.ER PO ONE (10:22)
--- NOTE | 2019-04-30 10:32 | PCM.PN ---
- General Info Date of Service: 04/30/19 Admission Dx/Problem (Free Text): Admission Diagnosis/Problem Admission Diagnosis/Problem Congestive heart failure Subjective Update: No acute events overnight. Reports wheezing this morning. Has been weaned off drip but HR goes up to 120s-130s occasionally. Denies any acute symptoms. Denies f/c, n/v/d/c, dysuria, or hematuria. - Review of Systems General: Reports: No Symptoms HEENT: Reports: No Symptoms Pulmonary: Reports: Wheezing Cardiovascular: Reports: No Symptoms Gastrointestinal: Reports: No Symptoms Genitourinary: Reports: No Symptoms Musculoskeletal: Reports: No Symptoms Skin: Reports: No Symptoms Neurological: Reports: No Symptoms Psychiatric: Reports: No Symptoms - Patient Data Vitals - Most Recent: Last Vital Signs Temp 98.0 F 04/30/19 08:00 Pulse 118 H 04/30/19 09:15 Resp 16 04/30/19 08:00 BP 120/77 04/30/19 09:17 Pulse Ox 95 04/30/19 08:00 Weight - Most Recent: 227 lb 8 oz I&O - Last 24 Hours: Intake & Output 04/29/19 04/30/19 04/30/19 22:59 06:59 14:59 Intake Total 1010 400 Output Total 950 Balance 1010 -950 400 Lab Results Last 24 Hours: Laboratory Results - last 24 hr 04/29/19 04/29/19 04/29/19 Range/Units 05:50 11:21 16:39 Sodium 140 (135-145) mmol/L Potassium 3.9 (3.6-5.0) mmol/L Chloride 101 (101-111) mmol/L Carbon Dioxide 29.0 (21.0-31.0) mmol/L Anion Gap 13.9 BUN 22 H (7-18) mg/dL Creatinine 0.7 (0.6-1.3) mg/dL Est Cr Clr Drug Dosing 66.33 mL/min Estimated GFR (MDRD) > 60 Glucose 139 H (74-105) mg/dL POC Glucose 144 H 216 H (83-110) mg/dl Calcium 9.1 (8.4-10.2) mg/dl Phosphorus 4.5 (2.5-4.6) mg/dL Magnesium 1.5 L (1.8-2.5) mg/dL 04/29/19 04/30/19 04/30/19 Range/Units 20:25 05:50 07:35 Sodium 138 (135-145) mmol/L Potassium 3.7 (3.6-5.0) mmol/L Chloride 99 L (101-111) mmol/L Carbon Dioxide 28.0 (21.0-31.0) mmol/L Anion Gap 14.7 BUN 15 (7-18) mg/dL Creatinine 0.7 (0.6-1.3) mg/dL Est Cr Clr Drug Dosing 66.33 mL/min Estimated GFR (MDRD) > 60 Glucose 133 H (74-105) mg/dL POC Glucose 231 H 134 H (83-110) mg/dl Calcium 8.5 (8.4-10.2) mg/dl Phosphorus 3.7 (2.5-4.6) mg/dL Magnesium 1.8 (1.8-2.5) mg/dL Med Orders - Current: Current Medications Acetaminophen (Tylenol) 650 mg PO Q4H PRN PRN Reason: Pain (mild 1-3) Albuterol (Proventil Neb Soln) 2.5 mg NEB Q2H PRN PRN Reason: shortness of breath/wheezing Last Admin: 04/29/19 14:13 Dose: 2.5 mg Atorvastatin Calcium (Lipitor) 40 mg PO DAILY [facility] Last Admin: 04/30/19 09:16 Dose: 40 mg Betamethasone/Clotrimazole (Lotrisone) 0 gm TOP 5XDAY PRN PRN Reason: Itching Bisacodyl (Dulcolax) 5 mg PO DAILY PRN PRN Reason: Constipation Last Admin: 04/28/19 11:12 Dose: 5 mg Chlorthalidone (Chlorthalidone) 25 mg PO DAILY [facility] Last Admin: 04/30/19 09:17 Dose: 25 mg Cholecalciferol (Vitamin D3) 125 mcg PO DAILY [facility] Last Admin: 04/30/19 09:16 Dose: 125 mcg Dextrose/Water (Dextrose 50% In Water) 25 ml IVPUSH ASDIRECTED PRN PRN Reason: Hypoglycemia Docusate Sodium (Colace) 100 mg PO BID PRN PRN Reason: Constipation Last Admin: 04/28/19 11:13 Dose: 100 mg Furosemide (Lasix) 40 mg PO DAILY [facility] Last Admin: 04/30/19 09:17 Dose: 40 mg Glucagon (Glucagen) 1 mg IM ONETIME PRN PRN Reason: Hypoglycemia Glucagon (Glucagen) 1 mg IM ONETIME PRN PRN Reason: Hypoglycemia Diltiazem HCl 125 mg/ Sodium (Chloride) 125 mls @ 5 mls/hr IV TITRATE [facility]; Protocol Last Titration: 04/29/19 10:49 Dose: 0 mg/hr, 0 mls/hr Insulin Human Lispro (Humalog) 0 unit SUBCUT WITHMEALSANDBED [facility]; Protocol Last Admin: 04/30/19 07:38 Dose: Not Given Lisinopril (Prinivil) 40 mg PO DAILY [facility] Last Admin: 04/30/19 09:17 Dose: 40 mg Magnesium Hydroxide (Milk Of Magnesia) 30 ml PO Q12H PRN PRN Reason: Constipation Magnesium Oxide (Magnesium Oxide) 250 mg PO WITHBREAKFAST [facility] Last Admin: 04/30/19 09:17 Dose: 250 mg Metoprolol Succinate (Toprol Xl) 50 mg PO ONETIME ONE Stop: 04/30/19 10:23 Metoprolol Succinate (Toprol Xl) 200 mg PO DAILY [facility] Nystatin (Nystop) 0 gm TOP BID [facility] Last Admin: 04/30/19 09:20 Dose: Not Given Omeprazole (Omeprazole) 40 mg PO ACBRK [facility] Last Admin: 04/30/19 06:08 Dose: 40 mg Ondansetron HCl (Zofran Odt) 4 mg PO Q6H PRN PRN Reason: nausea, able to take PO Estradiol 1 Mg Pt ('s Own Med) 0 each PO DAILY [facility] Last Admin: 04/30/19 09:20 Dose: 1 each Fluoxetine 20 Mg Cap (Pt's Own Med) 0 each PO DAILY [facility] Last Admin: 04/30/19 09:19 Dose: 1 each Mirabegron [ Myrbetriq] 25 Mg Pt's Own Med 0 each PO DAILY [facility] Last Admin: 04/30/19 09:20 Dose: 1 each Apixaban [Eliquis] 5 (Mg Pt Own Med) 0 each PO BID [facility] Last Admin: 04/30/19 09:18 Dose: 1 each Polyethylene Glycol (Miralax) 17 gm PO DAILY PRN PRN Reason: Constipation Promethazine HCl/Codeine (Phenergan With Codeine) 5 ml PO Q4H PRN PRN Reason: Cough Last Admin: 04/29/19 08:29 Dose: 5 ml Senna/Docusate Sodium (Senna Plus) 1 tab PO BEDTIME PRN PRN Reason: Constipation Sodium Chloride (Saline Flush) 10 ml FLUSH ASDIRECTED PRN PRN Reason: Keep Vein Open Last Admin: 04/29/19 21:50 Dose: 10 ml Discontinued Medications Atenolol (Tenormin) 50 mg PO DAILY [facility] Last Admin: 04/30/19 09:15 Dose: 50 mg Dextrose/Water (Dextrose 50% In Water) 25 ml IVPUSH ASDIRECTED PRN PRN Reason: Hypoglycemia Diltiazem HCl (Diltiazem) 25 mg IVPUSH ONETIME ONE Stop: 04/28/19 05:49 Last Admin: 04/28/19 05:54 Dose: 20 mg Diltiazem HCl (Diltiazem) Confirm Administered Dose 25 mg .ROUTE .STK-MED ONE Stop: 04/28/19 05:49 Last Admin: 04/28/19 05:55 Dose: Not Given Furosemide (Lasix) 80 mg IVPUSH NOW ONE Stop: 04/28/19 06:35 Last Admin: 04/28/19 07:07 Dose: 80 mg Furosemide (Lasix) 60 mg IVPUSH BIDAC [facility] Last Admin: 04/29/19 17:42 Dose: Not Given Magnesium Sulfate 2 gm/ Premix 50 mls @ 25 mls/hr IV ONETIME ONE Stop: 04/29/19 13:59 Last Admin: 04/29/19 13:00 Dose: 25 mls/hr Insulin Human Lispro (Humalog) 0 unit SUBCUT ACBED [facility]; Protocol Last Admin: 04/28/19 23:24 Dose: Not Given Insulin Human Lispro (Humalog) 0 unit SUBCUT ACBED [facility]; Protocol Last Admin: 04/29/19 23:28 Dose: Not Given Magnesium Oxide (Magnesium Oxide) 500 mg PO BIDM [facility] Stop: 04/29/19 18:01 Last Admin: 04/29/19 17:46 Dose: 500 mg Metoprolol Succinate (Toprol Xl) 100 mg PO DAILY [facility] Last Admin: 04/30/19 09:16 Dose: Not Given Apixaban [Eliquis] 5 (Mg Non- Form) 0 each PO BID [facility] Last Admin: 04/29/19 10:17 Dose: 1 each Apixaban [Eliquis] 5 (Mg Pt's Own Med) 0 each PO BID [facility] Last Admin: 04/29/19 10:48 Dose: Not Given - Exam General: Alert, Oriented, Cooperative, No Acute Distress HEENT: Pupils Equal, Pupils Reactive, Mucous Membr. Moist/[place] Neck: Supple Lungs: Clear to Auscultation, Normal Respiratory Effort Cardiovascular: Irregular Rhythm, Tachycardia GI/Abdominal Exam: Normal Bowel Sounds, Soft, Non-Tender, No Distention Extremities: Normal Inspection, Non-Tender, No Pedal Edema Skin: Warm, Dry, Intact Neurological: No New Focal Deficit Psy/Mental Status: Alert, Normal Affect, Normal Mood - Problem List & Annotations (1) Atrial fibrillation with RVR SNOMED Code(s): 458454688794659 Code(s): I48.91 - UNSPECIFIED ATRIAL FIBRILLATION Status: Acute Current Visit: Yes (2) Acute heart failure with normal ejection fraction SNOMED Code(s): 438925561, 105445149 Code(s): I50.31 - ACUTE DIASTOLIC (CONGESTIVE) HEART FAILURE Status: Acute Current Visit: Yes (3) Anxiety SNOMED Code(s): 02561988 Code(s): F41.9 - ANXIETY DISORDER, UNSPECIFIED Status: Acute Current Visit: Yes (4) Diabetes SNOMED Code(s): 09023442 Code(s): E11.9 - TYPE 2 DIABETES MELLITUS WITHOUT COMPLICATIONS Status: Acute Current Visit: No Qualifiers: Diabetes mellitus type: type 2 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 Diabetes mellitus complication status: without complication Qualified Code(s): E11.9 - Type 2 diabetes mellitus without complications - Problem List Review Problem List Initiated/Reviewed/Updated: Yes - My Orders Last 24 Hours: My Active Orders 04/29/19 10:34 Patient Status Discharge Transfer [TRANSFER] Routine 04/29/19 12:53 IS (RT) [RT Incentive Spirometry] [RC] 04/29/19 14:20 Patient's Own Medication [Ptom] 0 each PO BID 04/29/19 21:32 Insulin Lispro [HumaLOG] See Protocol SUBCUT WITHMEALSANDBED 04/30/19 08:00 Magnesium Oxide 250 mg PO WITHBREAKFAST 04/30/19 09:00 Furosemide [Lasix] 40 mg PO DAILY 04/30/19 10:22 Metoprolol Succinate [Toprol XL] 50 mg PO ONETIME ONE 05/01/19 09:00 Metoprolol Succinate [Toprol XL] 200 mg PO DAILY - Plan Plan:: #Acute respiratory failure with hypoxia: Resolved. Acute diastolic heart failure: -Presented with O2 sat of 88% on room air. -CXR shows bilateral pulmonary edema -Given 80 mg IV lasix -Continue lasix IV 60 mg BID -Switch to oral lasix today - Low Na diet - Daily standing weight - Echocardiogram pending. - Tele monitoring. #A fib with RVR: HR in the 150s. - Improved with cardizem in the ED. - Went into RVR again. - Wean off cardizem drip - Telemetry - TSH - increase toprol to 200 mg daily - Give extra 50 mg today. - Discontinue atenolol - Monitor and replace electrolytes - Continue Eliquis. #Metabolic acidosis: resolved. - CO2 on presentation was 16. - Improved to 23 with diuresis - Monitor renal function. #Hypomagnesemia - Mag is 1.3 => 1.5 => 1.8 - Replace mag, both IV and oral today #DM II: - SSI with hypoglycemia protocol. DVT PPx: Eliquis GI: Diabetic diet, low Na.
[2019-04-30] MEDS: Acetaminophen 325 MG Tab PO PRN ×2 (11:53→18:31)
[2019-04-30] MEDS: Codeine/Promethazine 10-6.25 MG/5 ML Syrup 5 ML UD Cup PO PRN (20:25)
[2019-04-30] MEDS ORDERED: Insulin Lispro 100 Units/ML 3 ML Vial SUBCUT SCH (21:27)
[2019-05-01] MEDS: Omeprazole 20 MG Cap.CR PO SCH (06:11)
[2019-05-01] MEDS: Acetaminophen 325 MG Tab PO PRN (06:12)
[2019-05-01] MEDS: Insulin Lispro 100 Units/ML 3 ML Vial SUBCUT SCH ×2 (07:55→12:33)
[2019-05-01] MEDS: Chlorthalidone 25 MG Tab PO SCH (08:44)
[2019-05-01] MEDS: Lisinopril 20 MG Tab PO SCH (08:44)
[2019-05-01] MEDS: atorvaSTATin 20 MG Tab PO SCH (08:44)
[2019-05-01] MEDS: Furosemide 40 MG Tab PO SCH (08:44)
[2019-05-01] MEDS: Cholecalciferol (Vitamin D3) 25 MCG Tab PO SCH (08:44)
[2019-05-01] MEDS: ESTRADIOL 1 MG PO SCH (08:45)
[2019-05-01] MEDS: FLUOXETINE 20 MG PO SCH (08:45)
[2019-05-01] MEDS: MIRABEGRON 25 MG PO SCH (08:45)
[2019-05-01] MEDS: APIXABAN 5 MG PO SCH (08:46)
[2019-05-01] MEDS: Nystatin Topical Powder 30 GM Bottle TOP SCH (08:46)
[2019-05-01] MEDS ORDERED: Metoprolol Succinate 50 MG Tab.ER PO SCH (09:00)
--- NOTE | 2019-05-01 11:04 | PCM.DCSUM1 ---
Discharge Summary - Hospital Course Free Text/Narrative:: Ms. Hughes is a 73 y.o female with medical history significant for HTN, hypercholesterolemia, a-fib, DM II on metformin, anxiety disorder, and GERD who presented to the ED with complaints of shortness of breath and was found to be in acute CHF exacerbation and a-fib with RVR. She was started on IV lasix and supplemental oxygen via nasal cannula. She diuresed well. O2 was weaned off. She received bolus dose of cardizem in the ED and rate was controlled but went back into A fib with RVR and was started on Cardizem drip. She was weaned off cardizem drip. Toprol dose was increased. She was in rate control. Continued on Eliquis. She was discharged to follow up with PCP and electrophysiology cardiology. HPI Initial Comments: Ms. Hughes is a 73 y.o female with medical history significant for HTN, hypercholesterolemia, a-fib, DM II on metformin, anxiety disorder, and GERD who presented to the ED with complaints of shortness of breath and was found to be in acute CHF exacerbation and a-fib with RVR. Patient reports that she has been dealing with shortness of breath and cough for the past one month, starting on March 19. States symptoms have progressed to the point that when she goes grocery shopping with her , she has to sit down on a bench for her to go oyster picker the items on thier list. She reports that she had difficulty breathing overnight and could not sleep well. She reports non- productive cough and wheezing. She reports bilateral lower extremity edema. She denies PND or orthopnea. She denies fevers, chills, n/v/d/c, chest pain, dysuria , hematuria, recent travel. She denies tobacco, alcohol, or illicit drug use. Diagnosis: Stroke: No - Discharge Data Discharge Date: 05/01/19 Discharge Disposition: Home, Self-Care 01 Condition: Good - Discharge Diagnosis/Problem(s) (1) Atrial fibrillation with RVR SNOMED Code(s): 285564983501993 ICD Code: I48.91 - UNSPECIFIED ATRIAL FIBRILLATION Status: Acute Current Visit: Yes (2) Acute heart failure with normal ejection fraction SNOMED Code(s): 348812072, 888537300 ICD Code: I50.31 - ACUTE DIASTOLIC (CONGESTIVE) HEART FAILURE Status: Acute Current Visit: Yes (3) Anxiety SNOMED Code(s): 14375787 ICD Code: F41.9 - ANXIETY DISORDER, UNSPECIFIED Status: Acute Current Visit: Yes (4) Diabetes SNOMED Code(s): 83987352 ICD Code: E11.9 - TYPE 2 DIABETES MELLITUS WITHOUT COMPLICATIONS Status: Acute Current Visit: No Qualifiers: Diabetes mellitus type: type 2 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 Diabetes mellitus complication status: without complication Qualified Code(s): E11.9 - Type 2 diabetes mellitus without complications - Discharge Plan *PRESCRIPTION DRUG MONITORING PROGRAM REVIEWED*: No *COPY OF PRESCRIPTION DRUG MONITORING REPORT IN PATIENT EDA: No Prescriptions/Med Rec: Chlorthalidone 25 mg PO DAILY #30 tablet Furosemide [Lasix] 40 mg PO DAILY #14 tablet Home Medications: Home Meds Apixaban [Eliquis] 5 mg PO BID 04/28/19 [History] Cholecalciferol (Vitamin D3) [Vitamin D] 5,000 unit PO DAILY 04/28/19 [History] Clotrimazole/Betamethasone Dip [Lotrisone Cream] 1 applic TOP PRN [History] Estradiol 0.5 mg PO DAILY 04/28/19 [History] FLUoxetine HCl [Fluoxetine HCl] 80 mg PO DAILY 04/28/19 [History] Lisinopril 40 mg PO DAILY 04/28/19 [History] Metoprolol Succinate 100 mg PO DAILY 04/28/19 [History] Mirabegron [Myrbetriq] 50 mg PO DAILY 04/28/19 [History] Nystatin 1 applic TOP BID 04/28/19 [History] Omeprazole 40 mg PO DAILY 04/28/19 [History] Promethazine HCl/Codeine [Prometh-Codein 6.25-10 mg/5 ml] 5 ml PO Q4H PRN [History] atorvaSTATin Calcium [Atorvastatin Calcium] 10 mg PO DAILY 04/28/19 [History] metFORMIN HCl [Metformin HCl] 1,000 mg pe PO BID 04/28/19 [History] Chlorthalidone 25 mg PO DAILY #30 tablet 05/01/19 [Rx] Furosemide [Lasix] 40 mg PO DAILY #14 tablet 05/01/19 [Rx] Oxygen Therapy Mode: Room Air Forms: ED Department Discharge - Discharge Summary/Plan Comment DC Time >30 min.: Yes - General Info Date of Service: 05/01/19 Admission Dx/Problem (Free Text: Admission Diagnosis/Problem Admission Diagnosis/Problem Congestive heart failure Subjective Update: No acute events overnight. HR occasionally goes into 120s but quickly comes down. Mostly in 80s-90s overnight. Reports she is breathing better. Denies chest pains, shortness of breath. Denies any acute symptoms. Denies f/c, n/v/d/c , dysuria, or hematuria. - Patient Data Vitals - Most Recent: Last Vital Signs Temp 97.6 F 05/01/19 08:00 Pulse 101 H 05/01/19 08:45 Resp 18 05/01/19 08:00 BP 119/77 05/01/19 08:45 Pulse Ox 97 05/01/19 08:00 Weight - Most Recent: 225 lb 12.8 oz I&O - Last 24 hours: Intake & Output 04/30/19 05/01/19 05/01/19 22:59 06:59 14:59 Intake Total 600 500 Output Total 1200 500 Balance -600 -500 500 Lab Results - Last 24 hrs: Laboratory Results - last 24 hr 04/30/19 04/30/19 04/30/19 Range/Units 05:56 11:48 17:01 POC Glucose 152 H 130 H (83-110) mg/dl TSH, Ultra Sensitive 1.88 (0.45-5.33) uIu/mL 04/30/19 05/01/19 Range/Units 20:07 07:37 POC Glucose 211 H 127 H (83-110) mg/dl TSH, Ultra Sensitive (0.45-5.33) uIu/mL Med Orders - Current: Current Medications Acetaminophen (Tylenol) 650 mg PO Q4H PRN PRN Reason: Pain (mild 1-3) Last Admin: 05/01/19 06:12 Dose: 650 mg Albuterol (Proventil Neb Soln) 2.5 mg NEB Q2H PRN PRN Reason: shortness of breath/wheezing Last Admin: 04/29/19 14:13 Dose: 2.5 mg Atorvastatin Calcium (Lipitor) 40 mg PO DAILY [facility] Last Admin: 05/01/19 08:44 Dose: 40 mg Betamethasone/Clotrimazole (Lotrisone) 0 gm TOP 5XDAY PRN PRN Reason: Itching Bisacodyl (Dulcolax) 5 mg PO DAILY PRN PRN Reason: Constipation Last Admin: 04/28/19 11:12 Dose: 5 mg Chlorthalidone (Chlorthalidone) 25 mg PO DAILY [facility] Last Admin: 05/01/19 08:44 Dose: 25 mg Cholecalciferol (Vitamin D3) 125 mcg PO DAILY [facility] Last Admin: 05/01/19 08:44 Dose: 125 mcg Dextrose/Water (Dextrose 50% In Water) 25 ml IVPUSH ASDIRECTED PRN PRN Reason: Hypoglycemia Docusate Sodium (Colace) 100 mg PO BID PRN PRN Reason: Constipation Last Admin: 04/28/19 11:13 Dose: 100 mg Furosemide (Lasix) 40 mg PO DAILY [facility] Last Admin: 05/01/19 08:44 Dose: 40 mg Glucagon (Glucagen) 1 mg IM ONETIME PRN PRN Reason: Hypoglycemia Glucagon (Glucagen) 1 mg IM ONETIME PRN PRN Reason: Hypoglycemia Diltiazem HCl 125 mg/ Sodium (Chloride) 125 mls @ 5 mls/hr IV TITRATE [facility]; Protocol Last Titration: 04/29/19 10:49 Dose: 0 mg/hr, 0 mls/hr Insulin Human Lispro (Humalog) 0 unit SUBCUT WITHMEALSANDBED [facility]; Protocol Last Admin: 05/01/19 07:55 Dose: Not Given Lisinopril (Prinivil) 40 mg PO DAILY [facility] Last Admin: 05/01/19 08:44 Dose: 40 mg Magnesium Hydroxide (Milk Of Magnesia) 30 ml PO Q12H PRN PRN Reason: Constipation Magnesium Oxide (Magnesium Oxide) 250 mg PO WITHBREAKFAST [facility] Last Admin: 05/01/19 08:43 Dose: 250 mg Metoprolol Succinate (Toprol Xl) 200 mg PO DAILY [facility] Last Admin: 05/01/19 08:45 Dose: 200 mg Nystatin (Nystop) 0 gm TOP BID [facility] Last Admin: 05/01/19 08:46 Dose: Not Given Omeprazole (Omeprazole) 40 mg PO ACBRK [facility] Last Admin: 05/01/19 06:11 Dose: 40 mg Ondansetron HCl (Zofran Odt) 4 mg PO Q6H PRN PRN Reason: nausea, able to take PO Estradiol 1 Mg Pt ('s Own Med) 0 each PO DAILY [facility] Last Admin: 05/01/19 08:45 Dose: 1 each Fluoxetine 20 Mg Cap (Pt's Own Med) 0 each PO DAILY [facility] Last Admin: 05/01/19 08:45 Dose: 1 each Mirabegron [ Myrbetriq] 25 Mg Pt's Own Med 0 each PO DAILY [facility] Last Admin: 05/01/19 08:45 Dose: 1 each Apixaban [Eliquis] 5 (Mg Pt Own Med) 0 each PO BID [facility] Last Admin: 05/01/19 08:46 Dose: 1 each Polyethylene Glycol (Miralax) 17 gm PO DAILY PRN PRN Reason: Constipation Promethazine HCl/Codeine (Phenergan With Codeine) 5 ml PO Q4H PRN PRN Reason: Cough Last Admin: 04/30/19 20:25 Dose: 5 ml Senna/Docusate Sodium (Senna Plus) 1 tab PO BEDTIME PRN PRN Reason: Constipation Sodium Chloride (Saline Flush) 10 ml FLUSH ASDIRECTED PRN PRN Reason: Keep Vein Open Last Admin: 04/29/19 21:50 Dose: 10 ml Discontinued Medications Atenolol (Tenormin) 50 mg PO DAILY [facility] Last Admin: 04/30/19 09:15 Dose: 50 mg Dextrose/Water (Dextrose 50% In Water) 25 ml IVPUSH ASDIRECTED PRN PRN Reason: Hypoglycemia Diltiazem HCl (Diltiazem) 25 mg IVPUSH ONETIME ONE Stop: 04/28/19 05:49 Last Admin: 04/28/19 05:54 Dose: 20 mg Diltiazem HCl (Diltiazem) Confirm Administered Dose 25 mg .ROUTE .STK-MED ONE Stop: 04/28/19 05:49 Last Admin: 04/28/19 05:55 Dose: Not Given Furosemide (Lasix) 80 mg IVPUSH NOW ONE Stop: 04/28/19 06:35 Last Admin: 04/28/19 07:07 Dose: 80 mg Furosemide (Lasix) 60 mg IVPUSH BIDAC [facility] Last Admin: 04/29/19 17:42 Dose: Not Given Magnesium Sulfate 2 gm/ Premix 50 mls @ 25 mls/hr IV ONETIME ONE Stop: 04/29/19 13:59 Last Admin: 04/29/19 13:00 Dose: 25 mls/hr Insulin Human Lispro (Humalog) 0 unit SUBCUT ACBED [facility]; Protocol Last Admin: 04/28/19 23:24 Dose: Not Given Insulin Human Lispro (Humalog) 0 unit SUBCUT ACBED [facility]; Protocol Last Admin: 04/29/19 23:28 Dose: Not Given [facility]) [facility] [place]: 04/29/19 18:01 Last Admin: 04/29/19 17:46 Dose: 500 mg Metoprolol Succinate (Toprol Xl) 100 mg PO DAILY [facility] Last Admin: 04/30/19 09:16 Dose: Not Given Metoprolol Succinate (Toprol Xl) 50 mg PO ONETIME ONE Stop: 04/30/19 10:23 Last Admin: 04/30/19 10:44 Dose: 50 mg Apixaban [Eliquis] 5 (Mg Non- Form) 0 each PO BID [facility] Last Admin: 04/29/19 10:17 Dose: 1 each Apixaban [Eliquis] 5 (Mg Pt's Own Med) 0 each PO BID [facility] Last Admin: 04/29/19 10:48 Dose: Not Given - Exam General: Reports: Alert, Oriented, Cooperative, No Acute Distress HEENT: Reports: Pupils Equal, Pupils Reactive, Mucous Membr. Moist/[place] Neck: Reports: Supple Lungs: Reports: Clear to Auscultation, Normal Respiratory Effort Cardiovascular: Reports: Regular Rate, Regular Rhythm GI/Abdominal Exam: Normal Bowel Sounds, Soft, Non-Tender, No Distention Extremities: Normal Inspection, Non-Tender, No Pedal Edema Skin: Reports: Warm, Dry, Intact Neurological: Reports: No New Focal Deficit Psy/Mental Status: Reports: Alert, Normal Affect, Normal Mood *Q Meaningful Use (DIS) - VTE *Q VTE Anticoagulation Contraindications: Alternative [place] Request PT
== END 2019-05-01 13:00 | disposition home or self-care (01) | DRG 291 ==
LOC: DL.ED 05:39 → DL.MS 07:50
PROVIDERS: ADMIT Internal Medicine; ATTEND Internal Medicine
DX: I11.0 Hypertensive heart disease with heart failure (principal); I50.31 Acute diastolic (congestive) heart failure; I50.9 Heart failure, unspecified; J96.21 Acute and chronic respiratory failure with hypoxia; E87.2 Acidosis; E78.00 Pure hypercholesterolemia, unspecified; E11.9 Type 2 diabetes mellitus without complications; R32 Unspecified urinary incontinence; F41.9 Anxiety disorder, unspecified; K21.9 Gastro-esophageal reflux disease without esophagitis; I48.91 Unspecified atrial fibrillation; Z96.659 Presence of unspecified artificial knee joint; E83.42 Hypomagnesemia; H54.7 Unspecified visual loss; M54.9 Dorsalgia, unspecified; G89.29 Other chronic pain; F32.9 Major depressive disorder, single episode, unspecified; Z79.01 Long term (current) use of anticoagulants; Z79.84 Long term (current) use of oral hypoglycemic drugs; Z79.899 Other long term (current) drug therapy; Z88.1 Allergy status to other antibiotic agents; Z88.0 Allergy status to penicillin; Z98.49 Cataract extraction status, unspecified eye; Z90.49 Acquired absence of other specified parts of digestive tract
CPT/HCPCS: 36415; 71045; 80048; 80053; 82962; 83735; 83880; 84100; 84443; 84484; 85025; 85027; 85610; 93005; 93306; 94010; 94640; 96374; 96375; 99284; 99285-25; A9270-GY; J1815; J1940; J3475; J3490; J7050; J7613-GY

== ENCOUNTER 2019-08-24 08:21 | Day surgery (SDC) | payer MEDICARE, BC ==
[2019-08-24] MEDS ORDERED: Midazolam 1 MG/ML 2 ML SDV IV ONE (08:22)
[2019-08-24] MEDS ORDERED: Dexamethasone 4 MG/ML SDV IV ONE (08:22)
[2019-08-24] MEDS ORDERED: Sodium Chloride 0.9% 10 ML Syringe IV ONE (08:22)
[2019-08-24] MEDS ORDERED: Phenylephrine 10% Ophth Soln 5 ML Bot EYERT PRN (09:00)
[2019-08-24] MEDS ORDERED: Acetaminophen 325 MG Tab PO PRN (09:00)
[2019-08-24] MEDS ORDERED: Ondansetron 4 MG/2 ML SDV IVPUSH PRN (09:00)
[2019-08-24] MEDS: Proparacaine 0.5% Ophth Soln 15 ML Bottle EYERT ONE (09:03)
[2019-08-24] MEDS: Povidone-Iodine 5% Sterile Ophth Soln 30 ML Bottle EYERT ONE ×2 (09:04→10:05)
[2019-08-24] MEDS: Moxifloxacin 0.5% Ophth Soln 3 ML Bottle EYERT ONE (09:05)
[2019-08-24] MEDS: Phenylephrine 10% Ophth Soln 5 ML Bot EYERT ONE ×2 (09:06→10:06)
[2019-08-24] MEDS: Timolol Maleate 0.5% Ophth Soln 5 ML Bottle EYERT ONE (09:07)
[2019-08-24] MEDS: Cataract Ophth Solution EYERT ONE (09:08)
[2019-08-24] MEDS: Sodium Chloride 0.9% 10 ML Syringe FLUSH PRN (09:21)
[2019-08-24] MEDS: Tetracaine HCl/PF 0.5% 4 ML Bottle EYERT ONE (10:04)
[2019-08-24] MEDS: Diclofenac Sodium 0.1% Ophth Soln 5 ML Bottle EYERT ONE (10:05)
[2019-08-24] MEDS: Lidocaine 1% 30 ML SDV ONE (10:05)
[2019-08-24] MEDS: Apraclonidine 0.5% Ophth Soln 5 ML Bot EYERT ONE (10:05)
[2019-08-24] MEDS: Chondroitin Sulfate/Hyaluronate Sodium Ophth Inj 0.5 ML Syringe IOCULAR ONE (10:06)
[2019-08-24] MEDS: Vancomycin 500 MG SDV EYERT ONE (10:06)
[2019-08-24] MEDS: Balanced Salt Solution Ophth Irrig 500 ML Bottle IOCULAR ONE (10:06)
[2019-08-24] MEDS: Chondroitin Sulfate/Hyaluronate Sodium Ophth Inj 0.75 ML Syringe EYERT ONE (10:07)
[2019-08-24] MEDS: Acetylcholine 20 MG/2 ML Intraocular Inj Kit EYERT ONE (10:07)
--- NOTE | 2019-08-24 12:32 | OR ---
DATE: 08/24/2019 PREOPERATIVE DIAGNOSIS: Visually significant mixed cataract, right eye. POSTOPERATIVE DIAGNOSIS: Visually significant mixed cataract, right eye. PROCEDURE: Extracapsular cataract extraction with intraocular lens implant, right eye. ANESTHESIA: Topical/local MAC. COMPLICATIONS: None. INDICATION: Mrs. Hughes was seen in the clinic. She has complained of a slow progressive decrease in vision. Examination revealed visually significant mixed cataract. She also has mild primary open-angle glaucoma. I explained options, I offered cataract surgery, and I explained risks including the potential for infection, retinal detachment, loss of vision, need for additional surgery, amongst others. She has significant pre-existing corneal astigmatism. We discussed implant options. She requested a monofocal implant. I offered her surgery with or without the iStent. OPERATIVE DESCRIPTION: After informed consent was obtained and the risks, benefits, and alternatives were explained. The patient was brought to the OR and prepped and draped in a sterile fashion. Attention was placed on the right eye. A sterile lid speculum was placed into the right eye to allow operative exposure. A full-thickness paracentesis was then made temporal. Preservative- free lidocaine followed by viscoelastic was injected into the anterior chamber. A 2.75 mm corneal incision was then made temporally. A bent needle cystotome was then used to create a small christy in the anterior capsule. A Utrata forceps were used to create 360-degree curvilinear capsulorrhexis measuring approximately 5.5 mm. Nucleus was then hydrodissected, hydrodelineated, decompressed centrally, and rotated. Nucleus was then removed using a quick- chop technique at the iris plane. Following removal of the nucleus, the remaining cortical material was removed using the irrigation and aspiration handpiece. Additional Viscoat was injected into the capsular bag. The intra- ocular lens was inserted. The I and A handpiece was then used to remove Viscoat from the posterior surface of the IOL. Miochol was then injected to promote pupillary contraction. Additional Viscoat was injected. The patient's head was then repositioned 30 degrees away from the surgical field and the microscope was tilted to accommodate the gonio lens. Ms. Hughes had significant difficulty with fixation and could not fixate in one location. I elected not to place the iStent. The patient was then repositioned. The microscope was repositioned. Remaining viscoelastic was aspirated from both the anterior and posterior chambers. Wound and paracentesis sites were hydrated. 0.1 mL of preservative- free vancomycin was injected intracamerally. Wound and paracentesis sites were inspected, noted to be Chivo negative. Intra-ocular lens was noted to be clear, well centered, and a good red reflex was noted. Postoperative medications were administered. Sterile patch and shield were placed over the eye. The patient was awakened from light sedation and transported to the postoperative recovery area having tolerated the procedure well. No complications occurred. [facility] /[id number]
== END 2019-08-24 11:19 | disposition home or self-care (01) ==
LOC: DL.SDS 08:21
PROVIDERS: ATTEND Ophthalmology
DX: E11.36 Type 2 diabetes mellitus with diabetic cataract (principal); H40.1111 Primary open-angle glaucoma, right eye, mild stage; H52.201 Unspecified astigmatism, right eye; I11.0 Hypertensive heart disease with heart failure; I50.9 Heart failure, unspecified; K21.9 Gastro-esophageal reflux disease without esophagitis; M19.90 Unspecified osteoarthritis, unspecified site; F41.9 Anxiety disorder, unspecified; E78.00 Pure hypercholesterolemia, unspecified; Z53.09 Procedure and treatment not carried out because of other contraindication; Z88.1 Allergy status to other antibiotic agents; Z88.0 Allergy status to penicillin; Z79.899 Other long term (current) drug therapy; Z79.01 Long term (current) use of anticoagulants; Z79.84 Long term (current) use of oral hypoglycemic drugs
CPT/HCPCS: 00142; J1100; J2001; J2250; J3370; V2632

== ENCOUNTER 2021-01-07 13:56 | Emergency (ER) | payer MEDICARE, BC, MEDICAID ==
--- NOTE | 2021-01-07 14:05 | EDM.PDOC ---
ED HPI GENERAL MEDICAL PROBLEM - General Chief Complaint: Abdominal Pain Stated Complaint: [id number] CONSTIPATION Time Seen by Provider: 01/07/21 14:05 Source of Information: Reports: Patient, Old Records, RN, RN Notes Reviewed History Limitations: Reports: No Limitations - History of Present Illness INITIAL COMMENTS - FREE TEXT/NARRATIVE: Pt presents to the ER stating she is constipated, had a very hard small bowel movement today at noon, hasn't taken anything for the constipation. No new medications. Denies fever, chills, or dysuria. Hx of occasional constipation. Pt thinks she was hospitalized once for a SBO, but isn't sure. Onset: Gradual Duration: Day(s): (3), Getting Worse Quality: Reports: Pressure Severity: Moderate Improves with: Reports: None Worsens with: Reports: None Associated Symptoms: Reports: No Other Symptoms - Related Data Allergies Allergy/AdvReac Type Severity Reaction Status Date / Time erythromycin base Allergy Hives Verified 08/24/19 08:59 [From [facility] Penicillins Allergy Hives Verified 08/24/19 08:59 Home Meds: Home Meds Apixaban [Eliquis] 5 mg PO BID 04/28/19 [History] Clotrimazole/Betamethasone Dip [Lotrisone Cream] 1 applic TOP 5XDAY PRN 04/28/19 [History] FLUoxetine HCl [Fluoxetine HCl] 80 mg PO DAILY 04/28/19 [History] Lisinopril 40 mg PO DAILY 04/28/19 [History] Mirabegron [Myrbetriq] 50 mg PO DAILY 04/28/19 [History] Omeprazole 40 mg PO DAILY 04/28/19 [History] atorvaSTATin Calcium [Atorvastatin Calcium] 10 mg PO DAILY 04/28/19 [History] metFORMIN HCl [Metformin HCl] 1,000 mg pe PO BID 04/28/19 [History] Chlorthalidone 25 mg PO DAILY #30 tablet 05/01/19 [Rx] Metoprolol Succinate 200 mg PO DAILY 30 Days #60 tab.er.24h 05/01/19 [Rx] Antiox.mv No.10/Omeg3s/Lut/Mathieu [I-Caps with Lutein-[place] 3 SFG] 1 tab PO DAILY 07/25/19 [History] Brimonidine Tartrate [Brimonidine Tartrate 0.2% Ophth Soln] 1 drop EYELF ASDIRECTED 07/25/19 [History] Glucosam/Chond/Collagen/Hyalur [Glucosamine Chondroitin] 1 tab PO DAILY 07/25/19 [History] Ketorolac [Acular 0.5% Ophth Soln] 1 drop EYELF ASDIRECTED 07/25/19 [History] Multivit-Min/FA/Lycopen/Lutein [Centrum Silver Tablet] 1 tab PO DAILY 07/25/19 [History] Ofloxacin [Ocuflox 0.3% Ophth Soln] 1 drop EYELF QID 07/25/19 [History] amLODIPine Besylate [Amlodipine Besylate] 5 mg PO DAILY 07/25/19 [History] prednisoLONE acetate [Pred Forte 1% Ophth Susp] 1 drop EYELF ASDIRECTED 07/25/19 [History] Furosemide 40 mg PO DAILY 08/23/19 [History] Nystatin 1 appful TOP ASDIRECTED 08/23/19 [History] Past Medical History HEENT History: Reports: Cataract, Impaired Vision, Other (See Below) Other HEENT History: wears glasses Cardiovascular History: Reports: Afib, Hypertension, SOB on Exertion Respiratory History: Reports: SOB Other Respiratory History: SOB WITH AMBULATION Gastrointestinal History: Reports: GERD Genitourinary History: Reports: Urinary Incontinence [employer] History: Reports: Musculoskeletal History: Reports: Back Pain, Chronic Neurological History: Reports: None Psychiatric History: Reports: Depression Endocrine/Metabolic History: Reports: Diabetes, Type II Hematologic History: Reports: None Immunologic History: Reports: None Oncologic (Cancer) History: Reports: None Dermatologic History: Reports: None - Infectious Disease History Infectious Disease History: Reports: Chicken Pox - Past Surgical History Head Surgeries/Procedures: Reports: None HEENT Surgical History: Reports: Cataract Surgery Other HEENT Surgeries/Procedures: Cataract surgery was scheduled for 21Aug Cardiovascular Surgical History: Reports: None Respiratory Surgical History: Reports: None GI Surgical History: Reports: Appendectomy Female Surgical History: Reports: Hysterectomy Musculoskeletal Surgical History: Reports: Knee Replacement Social & Family History - Family History Family Medical History: No Pertinent Family History - Caffeine Use Caffeine Use: Reports: Coffee Caffeine Use Comment: 1 can daily - Living Situation & Occupation Occupation: Retired ED ROS GENERAL - Review of Systems Review Of Systems: Comprehensive ROS is negative, except as noted in HPI. ED EXAM, GI/ABD - Physical Exam Exam: See Below Exam Limited By: No Limitations General Appearance: Alert, WD/WN, No Apparent Distress Head: Atraumatic, Normocephalic Neck: Normal Inspection Respiratory/Chest: No Respiratory Distress, Lungs Clear, Normal Breath Sounds, No Accessory Muscle Use, Chest Non-Tender Cardiovascular: Regular Rate, Rhythm GI/Abdominal Exam: Normal Bowel Sounds, Soft, No Organomegaly, No Distention, No Abnormal Bruit, No Mass, Pelvis Stable, Tender (Mild generalized tenderness) Back Exam: Normal Inspection Extremities: Normal Inspection Neurological: Alert, Oriented, No Motor/Sensory Deficits Psychiatric: Normal Mood Skin Exam: Warm, Dry, Intact, Normal Color, No Rash Course - Vital Signs Last Recorded V/S: Last Vital Signs Temp 98.1 F 01/07/21 14:07 Pulse 78 01/07/21 14:07 Resp 16 01/07/21 14:07 BP 124/63 01/07/21 14:07 Pulse Ox 99 01/07/21 14:07 - Orders/Labs/Meds Meds: Medications Discontinued Medications Generic Name Dose Route Start Last Admin Trade Name Freq PRN Reason Stop Dose Admin Bisacodyl 10 mg 01/07/21 14:27 Bisacodyl 10 Mg Supp RECTAL 01/07/21 14:28 ONETIME ONE Lactulose 20 gm 01/07/21 14:28 Lactulose Soln 10 Gm/15 Ml 30 Ml Ud Cup PO 01/07/21 14:29 ONETIME ONE - Radiology Interpretation Free Text/Narrative:: XR Abdomen: nonspecific bowel gas pattern per Rad. report. Departure - Departure Time of Disposition: 14:30 Disposition: Home, Self-Care 01 Condition: Good Clinical Impression: Constipation Qualifiers: Constipation type: other constipation type Qualified Code(s): K59.09 - Other constipation - Discharge Information *PRESCRIPTION DRUG MONITORING PROGRAM REVIEWED*: Not Applicable *COPY OF PRESCRIPTION DRUG MONITORING REPORT IN PATIENT EDA: Not Applicable Instructions: Constipation, Adult Forms: ED Department Discharge Additional Instructions: Rx: Miralax Powder Drink plenty of water. Eat prunes and/or drink prune juice. Follow up in clinic if not improved in 2 to 3 days. Sepsis Event Note (ED) - Focused Exam Vital Signs: Vital Signs Temp Pulse Resp BP Pulse Ox 01/07/21 14:07 98.1 F 78 16 124/63 99
[2021-01-07] MEDS ORDERED: Bisacodyl 10 MG Supp RECTAL ONE (14:27)
[2021-01-07] MEDS ORDERED: Lactulose Soln 10 GM/15 ML 30 ML UD Cup PO ONE (14:28)
--- NOTE | 2021-01-07 14:43 | CR ---
EXAMINATION: Abdomen 3V AP Flat Upright SEX: Female AGE: 75 years CLINICAL HISTORY: 75-year-old female with Abdominal pain (constipation). INTERPRETATION: 1. Multilevel disc disease and hypertrophic arthritic changes lower thoracic spine. 2. AP lumbar spine pelvis and hips unremarkable. 3. No abdominal soft tissue mass or significant stool concentrated in the course of the colon. Normal shadows kidneys and spleen. 4. No foreign bodies or pathologic calcifications. 5. Prominent abdominal pannus. Lung bases clear. 6. No sign of chemical bowel obstruction or free intraperitoneal air. 7. Lung bases clear. CONCLUSION: Nonspecific plain film exam abdomen.
== END 2021-01-07 15:16 | disposition home or self-care (01) ==
LOC: DL.ED 13:56
DX: K59.09 Other constipation (principal); I48.91 Unspecified atrial fibrillation; I10 Essential (primary) hypertension; K21.9 Gastro-esophageal reflux disease without esophagitis; E11.9 Type 2 diabetes mellitus without complications; Z88.0 Allergy status to penicillin; Z88.1 Allergy status to other antibiotic agents; Z79.01 Long term (current) use of anticoagulants; Z79.899 Other long term (current) drug therapy; Z79.84 Long term (current) use of oral hypoglycemic drugs
CPT/HCPCS: 74019; 93010; 99283-25; 99285; A9270-GY